=== PATIENT | female | born 1945 | race Caucasian/White ===

== ENCOUNTER 2017-04-03 10:40 | Outpatient (CLI) | payer MEDICARE ==
--- NOTE | 2017-04-24 10:51 | MMO ---
SCREENING MAMMOGRAPHY: Date: 04-03-17 Comparison: 03-29-16, 12-08-14, 12-04-13 History: Screening mammogram. The patient reports a remote history of right lumpectomy with benign pa thology. FINDINGS: This study is interpreted with the assistance of computer aided detection. Scattered fibroglandular densities are present. Benign appearing microcalcifications are noted bilate rally. There is a stable area of density in the upper outer aspect of the right breast, consistent with the provided history of prior right sided lumpectomy. No dominant mass or architectural distortion. No co ncerning microcalcifications. IMPRESSION: BIRADS 2 - benign findings. Annual screening mammography advised. POS: [facility]
== END 2017-04-03 10:41 | disposition home or self-care (01) ==
LOC: SCSMAMMO 10:40
PROVIDERS: ATTEND Family Medicine
DX: Z12.31 Encounter for screening mammogram for malignant neoplasm of breast (principal)
CPT/HCPCS: 77067; G0202

== ENCOUNTER 2017-07-20 09:12 | Outpatient (CLI) | payer MEDICARE ==
--- NOTE | 2017-07-20 12:10 | RAD ---
PA AND LATERAL CHEST X-RAY: 07/20/2017 HISTORY: Dyspnea. COMPARISON: 06/28/2011 FINDINGS: There is increased density at the medial right lung base, but this was also present on the prior exam . CT angiogram thorax on 10/10/2015 demonstrated an epicardial fat pad at the anteromedial right halima g base, which probably accounts for this finding. An epicardial fat pad is also seen at the left halima g base. The cardiac silhouette is mildly enlarged. The pulmonary vasculature is within normal limit s. The lungs are clear. Vascular calcification is seen in the thoracic aorta. There has been no ot her interval change when compared to the prior exam. IMPRESSION: No acute cardiopulmonary process. Chest is overall stable when compared to prior study on 06/28/2011 . POS: [facility]
== END 2017-07-20 09:13 | disposition home or self-care (01) ==
LOC: CP 09:12
PROVIDERS: ATTEND Internal Medicine Critical Care Medicine
DX: R06.00 Dyspnea, unspecified (principal)
CPT/HCPCS: 71046; 94010; 94727; 94729

== ENCOUNTER 2017-10-26 13:33 | Observation (INO) | payer MEDICARE ==
[2017-10-26 14:39] LABS: #Basophils 0.1 thou/uL (0.0-0.2); #Eosinphils 0.2 thou/uL (0.0-0.7); #Lymphocytes 2.1 thou/uL (1.20-3.40); #Monocytes 0.7 thou/uL (0.11-0.59); #Neutrophils 5.7 thou/uL (1.40-6.50); %Basophils 1.6 % (0.0-1.0); %Eosinophils 2.1 % (0.0-10.0); %Lymphocytes 23.3 % (21.0-51.0); %Monocytes 7.8 % (0.0-10.0); %Neutrophils 65.2 % (42.0-75.0); Mean Corpuscular HGB CONC 34.4 g/dL (32.0-36.0); Mean Corpuscular Hemoglobin 29.8 pg (27.0-31.0); Mean Corpuscular Volume 86.5 fL (78.0-98.0); Mean Platelet Volume 7.2 fL (7.4-10.4); PTT 29.6 SEC (22.9-36.1); Platelet Count 258 thou/uL (130-400); RBC Distribution Width 11.5 % (11.5-14.5); Red Blood Cell (RBC) Count 4.69 mill/uL (4.20-5.40); White Blood Cell (WBC) Count 8.8 thou/uL (4.8-10.8)
[2017-10-26 14:46] LABS: ALT (SGPT) 31 U/L (8-55); Albumin 3.9 g/dL (3.4-4.8); Alkaline Phosphatase 103 U/L (40-150); Anion Gap 14 mmol/L (10-20); BUN (Urea Nitrogen) 10 mg/dL (9.8-20.1); Bilirubin, Total 1.2 mg/dL (0.2-1.2); Calc. Creatinine Clearance 0 mL/min (70-130); Calcium 10.1 mg/dL (7.8-10.44); Carbon Dioxide 21 mmol/L (23-31); Chloride 108 mmol/L (98-107); Estimated GFR-MDRD 74; Globulin 2.8 g/dL (2.4-3.5); Glucose 121 mg/dL (80-115); Lipase 13 U/L (8-78); Protein, Total 6.7 g/dL (6.0-8.3); Sodium 139 mmol/L (136-145)
[2017-10-26 14:48] LABS: CKMB 1.6 ng/mL (0-6.6); Troponin I Less than 0.010 ng/mL (< 0.028)
[2017-10-26 15:17] LABS: AST (SGOT) 21 U/L (5-34); Magnesium 1.8 mg/dL (1.6-2.6)
--- NOTE | 2017-10-26 15:32 | RAD ---
PORTABLE CHEST 1 VIEW: DATE: 10/26/17. TIME: 2:39 p.m. HISTORY: Chest pain, angina. FINDINGS: Comparison is made with the exam of 07/20/17. The heart size is enlarged. The lungs are expanded without lobar consolidation, pneumothoraces, cm k pulmonary edema, or pleural effusions. IMPRESSION: No acute process. POS: [facility]
[2017-10-26] MEDS ORDERED: Nitroglycerin 2% Ointment 1 INCH/1 GM Packet ONE (15:47)
[2017-10-26] MEDS ORDERED: Enoxaparin Sodium 80 MG/0.8 ML SYRINGE ONE ×2 (15:47→15:48)
[2017-10-26 17:03] VITALS: BMI 34.9
[2017-10-26 18:01] LABS: Troponin I Less than 0.010 ng/mL (< 0.028)
[2017-10-26 20:32] LABS: Troponin I Less than 0.010 ng/mL (< 0.028)
[2017-10-26] MEDS ORDERED: Nitroglycerin 0.4 MG TAB (25 Tab Bottle) PO PRN (20:57)
[2017-10-26] MEDS ORDERED: Acetaminophen 325 MG TAB PO PRN (20:57)
--- NOTE | 2017-10-26 21:02 | HP ---
DATE OF ADMISSION: 10/26/2017 PRIMARY CARE PHYSICIAN: Dr. Donald. PRIMARY METAL STAMPER: Dr. Kee. CHIEF COMPLAINT: Chest discomfort. HISTORY OF PRESENT ILLNESS: The patient is a 72-year-old female with hypertension, currently on atenolol and prediabetes presented to the emergency room at [place] with chest discomfort. She was transferred to this facility for hospital admission. Over the last 24 hours, patient has on and off chest discomfort which is substernal, radiating to her left neck and left arm. She had several episodes, each lasting for 5-10 minutes. The pain was 6/10, dull in nature without any aggravating or relieving factor. No nausea, vomiting, diaphoresis, dizziness, syncope reported. She denies any recent immobilization, travel, fever, chills, cough or heartburn. In the emergency room, her EKG showed atrial fibrillation with nonspecific ST-T wave changes. Initial vital signs showed temperature 98.5, respirations 16, pulse 82, blood pressure 144/87 with O2 saturation 98% on room air. She received 1 dose of Lovenox 1 mg/kg with aspirin, 2 mg morphine, and nitropatch was placed. PAST MEDICAL HISTORY: 1. Hypertension 2. Hyperlipidemia. 3. Chronic myeloid leukemia on Tasigna. 4. Bilateral lower extremity neuropathy. 5. Chronic venous insufficiency, improved with support stocking. 6. Prediabetes. 7. Obesity with a BMI of 35. 8. Diverticulosis. 9. Degenerative joint disease. 10. Restless leg syndrome. 11. Obstructive sleep apnea on CPAP. PAST SURGICAL HISTORY: 1. Foot surgery. 2. Carpal tunnel surgery. 3. Cholecystectomy. 4. x2. 5. Appendectomy. 6. Partial colectomy for diverticulitis. 7. Resection of benign pituitary tumor. 8. Lumbar surgery. 9. Removal of benign breast tumor. 10. Cardiac catheterization in 2013 and 2016, report unavailable. 11. Colonoscopy. 12. Cataract surgery. ALLERGIES: Patient is allergic to CODEINE and LEVAQUIN. CURRENT HOME MEDICATIONS: Tasigna, ramipril 10 mg daily, aspirin 81 mg daily, atenolol, chlorthalidone 50/25 daily, Zetia 10 mg daily, potassium chloride 20 mEq daily. SOCIAL HISTORY: Patient currently lives at home with her . No alcohol, tobacco or drug use reported. She makes her own decision with the help of her . FAMILY HISTORY: Mother with stroke. She also had breast cancer. REVIEW OF SYSTEMS: The following complete review of systems was negative, unless otherwise mentioned in the HPI or below: Constitutional: Weight loss or gain, ability to conduct usual activities. Skin: Rash, itching. Eyes: Double vision, pain. ENT/Mouth: Nose bleeding, neck stiffness, pain, tenderness. Cardiovascular: Palpitations, dyspnea on exertion, orthopnea. Respiratory: Shortness of breath, wheezing, cough, hemoptysis, fever or night sweats. Gastrointestinal: Poor appetite, abdominal pain, heartburn, nausea, vomiting, constipation, or diarrhea. Genitourinary: Urgency, frequency, dysuria, nocturia. Musculoskeletal: Pain, swelling. Neurologic/Psychiatric: Anxiety, depression. Allergy/Immunologic: Skin rash, bleeding tendency. PHYSICAL EXAMINATION: VITAL SIGNS: As discussed above. GENERAL: A 72-year-old female in no apparent distress, no chest pain at this time. HEENT: Head atraumatic, normocephalic. Sclerae are anicteric. Moist mucous membrane, no oral lesion. NECK: Supple, no JVD appreciated. No carotid bruit. LUNGS: Clear to auscultation bilaterally, no wheezing, rales or rhonchi. HEART: S1, S2 present. Irregularly irregular. No significant murmur, rubs or gallops appreciated. ABDOMEN: Soft, nontender, bowel sounds present. EXTREMITIES: No edema or calf tenderness. NEUROLOGIC: Grossly nonfocal, moves all four extremities. PSYCHIATRY: Alert, awake, oriented x3. SKIN: Warm and dry. LYMPH NODES: No palpable lymph nodes in the neck. PERIPHERAL VASCULAR: Radial pulses palpable bilaterally. MUSCULOSKELETAL: No joint swelling or tenderness. LABORATORY AND X-RAY FINDINGS: Troponin negative. BUN 10, creatinine 0.7, magnesium 1.8, potassium 4.0. WBC 8.8 with hemoglobin 14. PT, INR, PTT normal range. Chest x-ray by my review was negative for infiltrate or edema. EKG by my review as discussed above. It also showed incomplete right bundle- branch block. IMPRESSION: 1. Chest discomfort, rule out acute coronary syndrome. 2. New diagnosis of atrial fibrillation, rate controlled on atenolol. Patient received 1 dose of Lovenox in the emergency room. 3. Obesity with a BMI of 35. 4. Hyperlipidemia. 5. History of abnormal stress test in 2016. 6. Chronic myelocytic leukemia, currently on Tasigna. 7. Hypertension. PLAN: Patient will be monitored on the telemetry unit. Serial troponins will be obtained. We will consult Dr. Kee in a.m. We will continue all of her home medications including atenolol with low dose aspirin. We will keep her n.p.o. past midnight. Further management per Cardiology. Plan of care was discussed with the patient in detail and she stated understanding. ANA
[2017-10-26] MEDS ORDERED: Nitroglycerin 2% Ointment 1 INCH/1 GM Packet TOP SCH (23:59)
[2017-10-27] MEDS ORDERED: Diazepam 2 MG TAB PO SCH (04:15)
[2017-10-27] MEDS ORDERED: Enoxaparin Sodium 80 MG/0.8 ML SYRINGE SC SCH (11:30)
--- NOTE | 2017-10-27 13:32 | EKG ---
Test Reason : STAT Blood Pressure : / mmHG Vent. Rate : 086 BPM Atrial Rate : 093 BPM P-R Int : 000 ms QRS Dur : 108 ms QT Int : 388 ms P-R-T Axes : 000 -04 -32 degrees QTc Int : 464 ms Atrial fibrillation Incomplete right bundle branch block Nonspecific T wave abnormality Abnormal ECG Confirmed by SOLA MEZA ([id number]) on 10/27/2017 1:32:28 PM Referred By: KENIA Confirmed By:SOLA MEZA
[2017-10-27 16:25] VITALS: BP 126/65; TEMP 98
[2017-10-27] MEDS ORDERED: Apixaban 5 MG TAB PO SCH (21:00)
[2017-10-27] MEDS ORDERED: Metoprolol Tartrate 25 MG TAB PO SCH (21:00)
--- NOTE | 2017-10-28 00:11 | CON ---
DATE OF ADMISSION: 10/26/2017 DATE OF CONSULTATION: 10/27/2017 INDICATION FOR CONSULTATION: This is a 72-year-old female with new onset atrial fibrillation. HISTORY OF PRESENT ILLNESS: This is a very pleasant 72-year-old female who has been followed by Dr. Kee in the past. She was seen in the office recently as January of last year and had been doin g quite well. She then noticed in the last few days, she has been having some pain in her left shoul lyubov which radiates down the left arm and left hand last about 10-15 minutes this would resolve, it ca n occur at any time, not associated with any type of activity. She did undergo a cardiac catheteriza tion couple of years ago and had normal coronary arteries. She also has had an echocardiogram in the past that did not show any significant abnormalities. She has no diastolic dysfunction. She has a normal ejection fraction. Unfortunately, when she was seen in the emergency room due to the arm pain , she was found to be in atrial fibrillation, the rate is under good control. She has been on beta-b lockers, but there has been no previous history of atrial fibrillation in the past. At this time, kell harman is relatively stable. She has no complaints of discomfort, but remains in atrial fibrillation. PAST MEDICAL HISTORY: Significant for CML, hyperlipidemia, hypertension. She has had history of low er extremity neuropathy. She has some venous insufficiency bilaterally, but it is not very significa nt. She has prediabetes, diverticulosis. She has obesity, degenerative joint disease, restless leg syndrome, and obstructive sleep apnea for which she uses a CPAP mask. She has had carpal tunnel synd rj repair, foot surgery, cholecystectomy. She has had a , appendectomy, benign pituitary resection. She has had a partial colectomy for diverticulitis, lumbar surgery. She has had removal of a benign breast tumor. She has had a colonoscopy, cataract surgery and again cardiac catheterizat ion which were unremarkable. She has normal coronary arteries. ALLERGIES: She is allergic to LEVAQUIN and CODEINE. MEDICATIONS: Prior to admission included Tasigna, ramipril, aspirin, atenolol, chlorthalidone, Zetia , and potassium. SOCIAL HISTORY: She is . She stays at home with her . She has no alcohol or tobacco abuse. FAMILY HISTORY: Noncontributory for early heart disease. Her mother had a CVA. REVIEW OF SYSTEMS: Twelve-point review of systems unremarkable except what was noted in the history of present illness. PHYSICAL EXAMINATION: GENERAL: Reveals a middle-aged female who is in no acute distress. She is alert and oriented. VITAL SIGNS: Her blood pressure is stable at 126/65, heart rates in the 80s and shows atrial fibrill ation. She has had no tachycardia associated with atrial fibrillation, respiratory rates in the 16-2 0 range. She is afebrile. HEENT: Shows head to be normocephalic and atraumatic. Carotid pulses are present. There were no br uits. There is no JVD. The thyroid did not appear to be enlarged. CHEST: Clear to auscultation without rales, rhonchi, or wheezing. CARDIOVASCULAR: Reveals an irregularly irregular rhythm. There were no gross murmurs noted. I did not hear an S3 nor an S4, but however, with atrial fibrillation could also not hear a S1, S2. ABDOMEN: Soft and nontender. She has positive bowel sounds. She does have obesity, but no palpable masses. EXTREMITIES: Show no clubbing, cyanosis or edema. Pedal pulses are present. NEUROLOGIC: She appears to be intact with normal strength and tone. SKIN: Warm and dry. LABORATORY DATA: Shows hemoglobin of 14. WBC is 8.8. Her BUN was 10 with a creatinine of 0.77, blo od sugar was 121. Cardiac enzymes are negative. No evidence of myocardial infarction. EKG shows a right bundle branch block with atrial fibrillation. She has had a right bundle branch block in the p ast with atrial fibrillation is new. IMPRESSION: 1. New onset atrial fibrillation. We will check her thyroid level otherwise, there was no specific etiology of the atrial fibrillation, is unlikely due to coronary artery disease and she had normal ca rdiac catheterization in 2016. She has a normal ejection fraction. This may be just due to the agin g process. We will also check a thyroid function to ensure that she does not have hyperthyroidism. 2. History of hypertension. This is under good control at this time. We will continue her present medications. Also for the atrial fibrillation, we will continue her atenolol. She is under good rat e control. We will see her back in the office. We will also start her on Eliquis. At this time, we will see her in the office and will give consideration is whether or not she is a candidate to under go cardioversion for atrial fibrillation 4-6 weeks after being anticoagulated. She may also be a goo d candidate to undergo ablation of the atrial fibrillation by the community artist. 3. History of chronic myelogenous leukemia. She will continue to follow with Dr. Masters, her oncol ogist or physical education specialist. 4. Hyperlipidemia. We will continue her medications. 5. Obstructive sleep apnea. We will continue her CPAP mask at this time. Otherwise, please refer t o the notes dictated by the primary care service. At this time, from a cardiac standpoint despite at rial fibrillation, she appears to be stable and most likely can be discharged home today. Her new me dication will be Eliquis and she will continue on the atenolol.
--- NOTE | 2017-10-28 14:18 | DIS ---
DATE OF DISCHARGE: 10/27/2017 DISCHARGE DISPOSITION: Home. FOLLOWUP: 1. Follow up with primary care physician, Dr. Donald in 1 week. 2. Follow up with Dr. Kee next week. MEDICATIONS; The patient was advised to discontinue aspirin. Eliquis 5 mg twice a day was started. All other home medications were left unchanged. The patient was seen and examined on the day of discharge. Denies any new complaints. No chest pain , shortness of breath, palpitations. INPATIENT CONSULTANTS: Cardiology, Dr. Newsome, who was covering for Dr. Kee. BRIEF HOSPITAL COURSE: The patient is a 72-year-old female with hypertension, who presented to the [facility] with chest discomfort. In the emergency room, she was found to have atrial fibrillation. He r rate was, however, controlled. Please refer to the history and physical for further details. The patient was admitted to the hospital with a diagnosis of chest discomfort, rule out acute coronar y syndrome. Serial troponins were negative. Cardiology evaluated the patient. The patient had a ca ia catheterization in 2005, which has been negative per Cardiology, verbal report. She has been s tarted on Eliquis 5 mg twice a day for atrial fibrillation. She was placed on Lovenox during this [facility] stay. She has been cleared by Cardiology for discharge. Plan of care was discussed with the patient in detail. She stated understanding. FINAL DIAGNOSES: 1. Chest discomfort, acute coronary syndrome ruled out. 2. New onset atrial fibrillation, rate controlled. The patient will continue current dose of atenol ol. 3. Obesity with a BMI of 35. 4. Hyperlipidemia. 5. Chronic myeloid leukemia, on Tasigna. 6. Hypertension. 7. History of abnormal stress test in 2015. Plan of care was discussed with the patient. She stated understanding.
== END 2017-10-27 18:24 | disposition home or self-care (01) ==
LOC: SCSER 13:33 → 2SW 17:01 → INTOOBSV 17:01
PROVIDERS: ADMIT Internal Medicine; ATTEND Internal Medicine
DX: R07.89 Other chest pain (principal); I48.91 Unspecified atrial fibrillation; E66.9 Obesity, unspecified; E78.5 Hyperlipidemia, unspecified; C92.10 Chronic myeloid leukemia, BCR/ABL-positive, not having achieved remission; I10 Essential (primary) hypertension; Z88.5 Allergy status to narcotic agent; Z68.35 Body mass index [BMI] 35.0-35.9, adult; Z79.82 Long term (current) use of aspirin; Z79.899 Other long term (current) drug therapy; G47.33 Obstructive sleep apnea (adult) (pediatric)
CPT/HCPCS: 71045; 80053; 82553; 83690; 83735; 84484 ×2; 85025; 85610; 85730; 93005 ×2; 94760 ×2; 96372 ×2; 96374; 99285; G0378; 36415; 93010; J1650; J2270

== ENCOUNTER 2017-11-12 08:42 | Emergency (ER) | payer MEDICARE ==
[2017-11-12] MEDS ORDERED: Iopamidol 370 76% 100 ML VIAL ONE (09:00)
[2017-11-12] MEDS ORDERED: Lorazepam 2 MG/ML VIAL ONE (09:08)
[2017-11-12] MEDS ORDERED: Nitroglycerin 2% Ointment 1 INCH/1 GM Packet ONE (09:08)
[2017-11-12] MEDS ORDERED: Ondansetron HCl/PF 4 MG/2 ML Vial ONE (09:08)
[2017-11-12] MEDS ORDERED: Nitroglycerin 0.4 MG TAB (25 Tab Bottle) ONE (09:08)
[2017-11-12 09:30] LABS: #Basophils 0.1 thou/uL (0.0-0.2); #Eosinphils 0.1 thou/uL (0.0-0.7); #Lymphocytes 1.8 thou/uL (1.20-3.40); #Monocytes 0.6 thou/uL (0.11-0.59); #Neutrophils 4.6 thou/uL (1.40-6.50); %Basophils 1.5 % (0.0-1.0); %Eosinophils 1.5 % (0.0-10.0); %Lymphocytes 24.6 % (21.0-51.0); %Monocytes 8.3 % (0.0-10.0); %Neutrophils 64.1 % (42.0-75.0); Hemoglobin 14.8 g/dL (12.0-16.0); Mean Corpuscular HGB CONC 35.9 g/dL (32.0-36.0); Mean Corpuscular Hemoglobin 29.9 pg (27.0-31.0); Mean Corpuscular Volume 83.2 fL (78.0-98.0); Mean Platelet Volume 7.7 fL (7.4-10.4); Platelet Count 240 thou/uL (130-400); RBC Distribution Width 11.1 % (11.5-14.5); Red Blood Cell (RBC) Count 4.96 mill/uL (4.20-5.40); White Blood Cell (WBC) Count 7.2 thou/uL (4.8-10.8)
[2017-11-12 09:36] LABS: ALT (SGPT) 46 U/L (8-55); AST (SGOT) 23 U/L (5-34); Albumin 4.3 g/dL (3.4-4.8); Alkaline Phosphatase 101 U/L (40-150); Anion Gap 18 mmol/L (10-20); BUN (Urea Nitrogen) 12 mg/dL (9.8-20.1); Bilirubin, Total 1.2 mg/dL (0.2-1.2); CK (CPK) 82 U/L (29-168); Calc. Creatinine Clearance 0 mL/min (70-130); Calcium 10.1 mg/dL (7.8-10.44); Carbon Dioxide 23 mmol/L (23-31); Chloride 102 mmol/L (98-107); Estimated GFR-MDRD 72; Globulin 2.2 g/dL (2.4-3.5); Glucose 109 mg/dL (80-115); Lipase 16 U/L (8-78); Potassium 3.5 mmol/L (3.5-5.1); Protein, Total 6.5 g/dL (6.0-8.3); Sodium 139 mmol/L (136-145)
[2017-11-12 09:37] LABS: CKMB 1.4 ng/mL (0-6.6); Troponin I Less than 0.010 ng/mL (< 0.028)
--- NOTE | 2017-11-12 12:00 | RAD ---
UPRIGHT PORTABLE CHEST 1 VIEW: HISTORY: A 72-year-old female with a history of left-sided chest pain radiating to neck and left arm. COMPARISON: 10/26/17. FINDINGS: Monitor leads overlie the chest. Heart size is within normal limits. The lungs are clear. No pneum onia, edema, or pleural effusion or other acute process. IMPRESSION: No acute intrathoracic disease. Stable from prior study. POS: [facility]
--- NOTE | 2017-11-12 13:36 | CT ---
CT ANGIOGRAM THORAX WITH IV CONTRAST AND 3D RECONSTRUCTIONS: DATE: 11/12/17. HISTORY: Chest pain with pain radiating to the patient's neck and left arm. COMPARISON: 10/10/15. FINDINGS: No filling defects are seen in the pulmonary arteries to suggest a pulmonary embolus. Vascular calcifications are seen in the thoracic aorta. The thoracic aorta is normal in caliber with out evidence of an aortic dissection. Nonenlarged nonspecific mediastinal lymph nodes are present. There are mild linear and parenchymal densities in the region of the right middle lobe and lingula al so seen on prior study on 10/10/15 and may be related to areas of scarring. The lungs are otherwise c lear. No pulmonary nodule, mass, or pleural effusion is seen. Heart is at the upper limits of ivone l in size. There is a stable small pericardial effusion. A small hiatal hernia is again identified. Degenerative changes are seen in the spine. There is suggested cortical thickening and coarsened tra becular pattern involving the T12 vertebral body which is stable when compared to the prior study as well as stable when compared to prior study on10/22/14. This may be related to prominent degenerative changes at these levels, but given coarsened trabecular pattern, Paget's disease is a possibility. IMPRESSION: 1. No Ct evidence of a pulmonary embolus. 2. Stable small pericardial effusion. 3. Small hiatal hernia. 4. No CT evidence of a pulmonary embolus. POS: [facility]
== END 2017-11-12 11:44 | disposition home or self-care (01) ==
LOC: SCSER 08:42
DX: I48.91 Unspecified atrial fibrillation (principal); E78.5 Hyperlipidemia, unspecified; I10 Essential (primary) hypertension; Z79.899 Other long term (current) drug therapy
CPT/HCPCS: 71045; 71275; 80053; 82553; 83690; 84484; 85025; 93005; 96374; 96375; J2060; J2405

== ENCOUNTER 2018-04-07 08:11 | Emergency (ER) | payer MEDICARE ==
[2018-04-07] MEDS ORDERED: HYDROcodone/Acetaminophen 5/325 mg Tablet ONE (09:21)
--- NOTE | 2018-04-07 09:48 | RAD ---
CHEST PA AND LATERAL: HISTORY: Cough. COMPARISON: 11/12/2017 FINDINGS: The heart size is enlarged. The lungs are well expanded without focal areas of consolidation, pneumo thorax, maria a pulmonary edema, or pleural effusions. There are degenerative changes in the spine. IMPRESSION: No acute process. POS: [facility]
[2018-04-07 10:03] LABS: Bilirubin Negative (Negative); Blood, Urine Negative (Negative); Clarity Slightly Cloudy (Clear); Glucose, Urine (Dipstick) Negative (Negative); Leukocyte Trace (Negative); Nitrite Negative (Negative); Protein, Urine (Dipstick) Negative (Neg-Trace); pH, Urine 7.5 (5.0-9.0)
[2018-04-07 10:05] LABS: Bacteria/HPF 2+ HPF (None Seen); RBC/HPF 0-3 HPF (0-3); Squamous Epithelial 0-3 HPF (0-3)
== END 2018-04-07 10:47 | disposition home or self-care (01) ==
LOC: SCSER 08:11
DX: J34.89 Other specified disorders of nose and nasal sinuses (principal); R53.81 Other malaise; M79.10 Myalgia, unspecified site; R05 Cough; G89.29 Other chronic pain; M54.5 Low back pain; E78.5 Hyperlipidemia, unspecified; I10 Essential (primary) hypertension; G47.30 Sleep apnea, unspecified; I48.91 Unspecified atrial fibrillation; Z79.899 Other long term (current) drug therapy
CPT/HCPCS: 71046; 81003; 81015; 87077; 87086; 87186; 87804; 93005

== ENCOUNTER 2018-04-24 10:42 | Outpatient (CLI) | payer MEDICARE ==
--- NOTE | 2018-04-24 13:30 | MMO ---
SCREENING MAMMOGRAPHY: DAET: 04/24/2018. COMPARISON: 04/03/2017, 03/29/2016, 12/04/2013. HISTORY: Screening. FINDINGS: The patient's mammogram is interpreted with the assistance of computer-aided detection. There are sc attered fibroglandular densities present. No dominant mass or architectural distortion is noted. There are benign calcifications noted bilater ally. A stable asymmetric density is noted in the upper outer right breast, unchanged when compared to studies dating to 2015 and stable since 2013. The patient reports a history of prior lumpectomy. IMPRESSION: BI-RADS 2 - benign findings. Annual screening mammography recommended. BIRADS 2: Benign Finding(s) Routine annual screening mammography (for women over age 40) - benign findings. POS: [facility]
== END 2018-04-24 10:43 | disposition home or self-care (01) ==
LOC: SCSMAMMO 10:42
PROVIDERS: ATTEND Family Medicine
DX: Z12.31 Encounter for screening mammogram for malignant neoplasm of breast (principal)
CPT/HCPCS: 77067

== ENCOUNTER 2018-05-22 08:29 | Emergency (ER) | payer MEDICARE ==
[2018-05-22] MEDS ORDERED: Acetaminophen 325 MG TAB ONE (09:31)
== END 2018-05-22 09:44 | disposition home or self-care (01) ==
LOC: SCSER 08:29
DX: M25.511 Pain in right shoulder (principal); I48.91 Unspecified atrial fibrillation; I10 Essential (primary) hypertension; E78.5 Hyperlipidemia, unspecified; G47.30 Sleep apnea, unspecified; Z79.899 Other long term (current) drug therapy
CPT/HCPCS: 99283

== ENCOUNTER 2018-05-30 16:48 | Outpatient (CLI) | payer MEDICARE ==
--- NOTE | 2018-05-30 18:38 | RAD ---
PA AND LATERAL CHEST: 05/30/18 HISTORY: Cough. Fever. COMPARISON: 04/07/18 exam. Heart size is enlarged. There are atherosclerotic changes of the aorta. The lungs are clear of any in filtrates. There are arthritic changes in the spine. IMPRESSION: Mild cardiomegaly. POS: [facility]
== END 2018-05-30 16:49 | disposition home or self-care (01) ==
LOC: SCSRAD 16:48
PROVIDERS: ATTEND Nurse Practitioner Family
DX: J40 Bronchitis, not specified as acute or chronic (principal); I51.7 Cardiomegaly
CPT/HCPCS: 71046

== ENCOUNTER 2019-02-19 11:31 | Outpatient (CLI) | payer MEDICARE ==
--- NOTE | 2019-02-19 12:11 | ULT ---
US Venous Doppler Rt Unilat HISTORY: Leg edema. Pain and redness. COMPARISON: None. FINDINGS: Real-time color Doppler evaluation the right lower extremity was performed from groin to ca lf. This includes evaluation the common femoral and superficial femoral, profunda femoral saphenous popliteal posterior tibial veins. This shows a patent deep venous system. There is normal compressibility and augmentation. IMPRESSION: No evidence of DVT of the right lower extremity.
== END 2019-02-19 11:32 | disposition home or self-care (01) ==
LOC: SCSULT 11:31
PROVIDERS: ATTEND Nurse Practitioner Family
DX: I87.2 Venous insufficiency (chronic) (peripheral) (principal)

== ENCOUNTER 2019-05-17 16:31 | Observation (INO) | payer MEDICARE ==
--- NOTE | 2019-05-17 17:04 | RAD ---
EXAM: Chest Two Views 05/17/2019 5:01 PM HISTORY: Chest pain COMPARISON: May 30, 2018 FINDINGS: Heart: There is stable cardiomegaly. Pulmonary vessels: Normal. Costophrenic angles: Clear. Lungs: No acute airspace consolidation. Pneumothorax: None. Osseous structures:Intact. Additional findings: None. IMPRESSION: No significant acute intrathoracic disease.
[2019-05-17 17:22] LABS: #Basophils 0.1 thou/uL (0.0-0.2); #Eosinphils 0.3 thou/uL (0.0-0.7); #Lymphocytes 2.9 thou/uL (1.20-3.40); #Neutrophils 5.9 thou/uL (1.40-6.50); %Basophils 1.3 % (0.0-1.0); %Eosinophils 2.5 % (0.0-10.0); %Lymphocytes 28.2 % (21.0-51.0); %Monocytes 9.8 % (0.0-10.0); %Neutrophils 58.2 % (42.0-75.0); Hemoglobin 14.8 g/dL (12.0-16.0); Mean Corpuscular HGB CONC 32.7 g/dL (32.0-36.0); Mean Corpuscular Hemoglobin 29.4 pg (27.0-31.0); Mean Corpuscular Volume 89.8 fL (78.0-98.0); Mean Platelet Volume 8.1 fL (7.4-10.4); Platelet Count 254 thou/uL (130-400); RBC Distribution Width 12.9 % (11.5-14.5); Red Blood Cell (RBC) Count 5.03 mill/uL (4.20-5.40); White Blood Cell (WBC) Count 10.1 thou/uL (4.8-10.8)
[2019-05-17 17:40] LABS: ALT (SGPT) 41 U/L (8-55); AST (SGOT) 30 U/L (5-34); Albumin 4.3 g/dL (3.4-4.8); Alkaline Phosphatase 111 U/L (40-110); Anion Gap 15 mmol/L (10-20); BUN (Urea Nitrogen) 14 mg/dL (9.8-20.1); Bilirubin, Total 1.3 mg/dL (0.2-1.2); CK (CPK) 102 U/L (29-168); Calc. Creatinine Clearance 0 mL/min (70-130); Calcium 9.6 mg/dL (7.8-10.44); Carbon Dioxide 25 mmol/L (23-31); Chloride 105 mmol/L (98-107); Estimated GFR-MDRD 57; Globulin 2.6 g/dL (2.4-3.5); Glucose 93 mg/dL (83-110); Potassium 3.8 mmol/L (3.5-5.1); Protein, Total 6.9 g/dL (6.0-8.3); Sodium 141 mmol/L (136-145)
[2019-05-17] MEDS ORDERED: Aspirin 325 MG TAB ONE (18:04)
[2019-05-17] MEDS ORDERED: Nitroglycerin 2% Ointment 1 INCH/1 GM Packet ONE (18:04)
[2019-05-17] MEDS ORDERED: Haloperidol Lactate 5 MG/ML VIAL ONE (18:36)
[2019-05-17] MEDS ORDERED: Lorazepam 2 MG/ML VIAL ONE (18:36)
[2019-05-17 20:10] VITALS: BMI 37.3
[2019-05-17 20:55] LABS: Troponin I Less than 0.010 ng/mL (< 0.028)
[2019-05-17] MEDS: Nitroglycerin 2% Ointment 1 INCH/1 GM Packet TOP SCH (23:18)
[2019-05-17 23:32] LABS: Troponin I Less than 0.010 ng/mL (< 0.028)
[2019-05-18] MEDS: Nitroglycerin 2% Ointment 1 INCH/1 GM Packet TOP SCH (06:07)
[2019-05-18] MEDS ORDERED: Ketorolac Tromethamine 30 MG/ML VIAL IVP SCH (08:45)
[2019-05-18] MEDS ORDERED: Acetaminophen 500 MG TAB PO PRN (12:09)
[2019-05-18] MEDS ORDERED: Labetalol HCl 100 MG/20 ML VIAL SLOW IVP PRN (12:09)
[2019-05-18] MEDS ORDERED: Ondansetron PF 4 MG/2 ML Vial IVP PRN (12:09)
[2019-05-18] MEDS ORDERED: Ondansetron ODT 4 MG TAB PO PRN (12:09)
[2019-05-18] MEDS ORDERED: Benzonatate 100 MG CAP PO PRN (12:09)
[2019-05-18] MEDS ORDERED: Guaifenesin DM 100-10/5 ML UDCUP PO PRN (12:09)
[2019-05-18] MEDS ORDERED: Ketorolac Tromethamine 30 MG/ML VIAL IVP PRN (12:27)
[2019-05-18] MEDS ORDERED: Betamethasone 0.1% Cream 15 GM TUBE TOP PRN (13:00)
--- NOTE | 2019-05-18 13:19 | HP ---
PRIMARY CARE PROVIDER: Jose Enrique Donald MD CHIEF COMPLAINT: Shortness of breath and left neck pain. HISTORY OF PRESENT ILLNESS: This is a 74-year-old female with significant history of chronic atrial fibrillation with variable rate on chronic anticoagulation with Eliquis, complaining of progressive and intrusive shortness of breath with minimal activity or exertion. The patient with chronic atrial fibrillation, on Eliquis over 1 year with variable rate control. The patient states she has undergone 5 attempts for cardioversion, which were unsuccessful. The patient most recently had an outpatient visit with her railroad auditor, Dr. Kee, approximately 5 days prior to this evaluation. The patient denied any specific change to her cardiac medications and continues on rate control measures in addition to the anticoagulation. The patient has noted progressive shortness of breath, limiting her ability to take part in her regular activities at home and limiting her ability to even perform shopping duties. The patient also states she was placed on Ceftin for bronchitis by her maintenance specialist within the last 48 hours prior to this evaluation. The patient does admit to feeling palpitations when her heart races with minimal activity with some pain in her left neck with increased work of breathing. The patient denies any increased lower extremity swelling or orthopnea. The patient denied fever, chills, exposure history, or recent travel. The patient also admits to history of peripheral neuropathy, treated with gabapentin by her neurologist, Dr. Cleveland. In the emergency room, the patient underwent general evaluation, receiving topical nitroglycerin in addition to aspirin 325 mg. EKG showed atrial fibrillation with variable rate and chest imaging was unremarkable. The patient was placed in observation status for further evaluation. PAST MEDICAL HISTORY: 1. Chronic atrial fibrillation with variable rate control on chronic anticoagulation with Eliquis. 2. Peripheral neuropathy. 3. Dyspnea, progressive. 4. Hypertension. 5. Obstructive sleep apnea, on nocturnal CPAP. 6. Hyperlipidemia. 7. Chronic myelocytic leukemia, in remission. 8. Morbid obesity. 9. History of diverticulosis. 10. Restless legs syndrome. PAST SURGICAL HISTORY: 1. Status post foot surgery. 2. Status post carpal tunnel release. 3. Status post cholecystectomy. 4. Status post section x2. 5. Status post appendectomy. 6. Status post partial colectomy for diverticulitis. 7. Status post resection of pituitary tumor. 8. Status post lumbar spine surgery. 9. Status post benign breast tumor resection. 10. Status post cardiac catheterization in 2013 and 2016. 11. Status post colonoscopy. 12. Status post cataract removal. 13. Status post cardioversion x5, unsuccessful for atrial fibrillation. CURRENT MEDICATIONS: 1. Atenolol/chlorthalidone 50/25 mg 1 tablet p.o. daily. 2. Ceftin 250 mg p.o. b.i.d. 3. Zetia 10 mg p.o. at bedtime. 4. Gabapentin 300 mg p.o. q.a.m. and at noon and 600 mg at bedtime. 5. Multivitamin 1 tablet p.o. daily. 6. Tasigna 300 mg p.o. b.i.d. 7. [place]-3 fatty acids 1 capsule p.o. b.i.d. 8. K-Dur 20 mEq p.o. daily. 9. Altace 10 mg p.o. at bedtime. 10. Coenzyme Q10 of 200 mg p.o. q.a.m. 11. Eliquis 5 mg p.o. b.i.d. ALLERGIES: TO CODEINE AND LEVAQUIN. FAMILY HISTORY: Mother with history of CVA and breast cancer. SOCIAL HISTORY: , residing in [place], [place]. No current alcohol, tobacco, or illicit drug use. Limited activity level due to dyspnea. No assistive device needed for ambulation. REVIEW OF SYSTEMS: CONSTITUTIONAL: Negative for weight loss or gain, ability to conduct usual activities. SKIN: Negative for rash, itching. EYES: Negative for double vision, pain. ENT/MOUTH: Negative for nose bleeding, neck stiffness, pain, tenderness. CARDIOVASCULAR: Negative for palpitations, dyspnea on exertion, orthopnea. RESPIRATORY: Negative for shortness of breath, wheezing, cough, hemoptysis, fever or night sweats. GASTROINTESTINAL: Negative for poor appetite, abdominal pain, heartburn, nausea, vomiting, constipation, or diarrhea. GENITOURINARY: Negative for urgency, frequency, dysuria, nocturia. MUSCULOSKELETAL: Negative for pain, swelling. NEUROLOGIC/PSYCHIATRIC: Negative for anxiety, depression. ALLERGY/IMMUNOLOGIC: Negative for skin rash, bleeding tendency. Otherwise, negative except as stated per HPI. PHYSICAL EXAMINATION: VITAL SIGNS: On admission, blood pressure 167/83, pulse 80, respiratory rate 20, temperature 98.8 degrees Fahrenheit, and O2 saturation 99% on room air. GENERAL APPEARANCE: This is a 74-year-old female, tearful, anxious, responsive to questions, in [id number] distress. HEENT: Pupils are equal, round, and reactive to light and accommodation. Extraocular muscles are intact. No scleral icterus. No conjunctival injection. Nares patent. OP is clear. Teeth in good repair. NECK: Supple. No cervical adenopathy. No thyromegaly. No carotid bruits. No JVD appreciated. Cervical spine with full active and passive range of motion. No meningeal signs noted. CHEST: Lungs are clear to auscultation bilaterally. CARDIOVASCULAR: S1 and S2 with irregular rate and rhythm. Distant heart sounds. ABDOMEN: Rounded, soft, nontender, and nondistended. Bowel sounds are positive in all 4 quadrants. There is no hepatosplenomegaly. No abdominal bruits. No rebound or guarding appreciated. EXTREMITIES: Warm and dry with fair turgor. No clubbing, cyanosis, or asymmetric edema appreciated. Pulses palpable distally at the dorsalis pedis, posterior tibial, and popliteal arteries bilaterally. Capillary refill less than 2 seconds. NEUROLOGIC: Cranial nerves II through XII are grossly intact. No focal or lateralizing signs appreciated. PERTINENT LABORATORY AND X-RAY FINDINGS: Sodium 141, potassium 3.8, chloride 105, CO2 of 25, BUN 14, creatinine 0.96, estimated GFR 57, glucose 93, calcium 9.6, total bilirubin 1.3, AST 30, ALT 41, and alkaline phosphatase 111. Troponin I negative x3. BNP 86. CBC within normal limits. Portable chest x-ray dated 05/17/2019, showed no acute cardiopulmonary process. EKG dated 05/17/2019, by my interpretation shows atrial fibrillation with heart rates in the 80s. Attenuated R-waves noted in the precordial leads. Right bundle-branch block pattern. T-wave flattening in leads III and aVF. ASSESSMENT AND PLAN: 1. Chronic atrial fibrillation with variable rate control. The patient will be observed on the telemetry unit. We will consult Cardiology and Electrophysiology Service for consideration of cardiac ablation therapy. Significant dyspnea associated with atrial fibrillation, limiting activities of daily living. Continue atenolol 50 mg daily. May consider additional rate control agents. Continue Eliquis 5 mg b.i.d. 2. Dyspnea. Suspect secondarily to #1. See above for management options. 3. Hypertension. Resume home antihypertensive regimen and monitor clinical response. 4. Chronic myeloid leukemia, in remission. Continue Tasigna. 5. Peripheral neuropathy. Resume gabapentin 300 mg q.a.m. and at noon and 600 mg at bedtime. 6. Prophylaxis. SCDs while in bed. Pepcid 20 mg p.o. b.i.d. 7. Code status is full. Surrogate medical decision maker is the patient's spouse. Job ID: [id number]
[2019-05-18] MEDS ORDERED: Gabapentin 300 MG CAP PO SCH (15:00)
[2019-05-18] MEDS: NILOTINIB 150 MG PO SCH (18:30)
[2019-05-18] MEDS: Gabapentin 300 MG CAP PO SCH (20:35)
[2019-05-18] MEDS: Cefuroxime Axetil 250 MG TAB PO SCH (20:35)
[2019-05-18] MEDS: Famotidine 20 MG TAB PO SCH (20:36)
[2019-05-18] MEDS: Fish Oil 1,000 MG CAP PO SCH (20:36)
[2019-05-18] MEDS: Potassium Chloride 20 MEQ TAB PO SCH (20:36)
[2019-05-18] MEDS: Ezetimibe 10 MG TAB PO SCH (20:37)
[2019-05-18] MEDS: Apixaban 5 MG TAB PO SCH (20:37)
[2019-05-19 05:40] LABS: Hemoglobin 14.4 g/dL (12.0-16.0); Lymphocytes 32 % (21-51); MDiff Complete? YES; Mean Corpuscular Hemoglobin 29.4 pg (27.0-31.0); Mean Corpuscular Volume 88.9 fL (78.0-98.0); Mean Platelet Volume 8.1 fL (7.4-10.4); Monocytes 10 % (0-10); Neutrophil 58 % (42-75); Platelet Count 234 thou/uL (130-400); White Blood Cell (WBC) Count 8.5 thou/uL (4.8-10.8)
[2019-05-19 06:48] LABS: Anion Gap 16 mmol/L (10-20); BUN (Urea Nitrogen) 20 mg/dL (9.8-20.1); Calc. Creatinine Clearance 56 mL/min (70-130); Carbon Dioxide 21 mmol/L (23-31); Chloride 108 mmol/L (98-107); Estimated GFR-MDRD 34; Glucose 82 mg/dL (83-110); Potassium 4.2 mmol/L (3.5-5.1); Sodium 141 mmol/L (136-145)
[2019-05-19] MEDS: NILOTINIB 150 MG PO SCH ×2 (07:00→18:08)
[2019-05-19] MEDS: Cefuroxime Axetil 250 MG TAB PO SCH ×2 (08:30→19:58)
[2019-05-19] MEDS: Fish Oil 1,000 MG CAP PO SCH ×2 (08:30→19:59)
[2019-05-19] MEDS: Ubidecarenone 50 MG CAP PO SCH (08:30)
[2019-05-19] MEDS: Famotidine 20 MG TAB PO SCH ×2 (08:30→19:58)
[2019-05-19] MEDS: Multivit, Therapeutic 1 TAB PO SCH (08:30)
[2019-05-19] MEDS: Gabapentin 300 MG CAP PO SCH ×3 (08:31→19:58)
[2019-05-19] MEDS: Apixaban 5 MG TAB PO SCH ×2 (08:31→19:59)
[2019-05-19] MEDS: ATENOLOL PO SCH (08:34)
[2019-05-19] MEDS: CHLORTHALIDONE PO SCH (08:34)
[2019-05-19] MEDS ORDERED: Ketorolac Tromethamine 30 MG/ML VIAL IVP PRN (12:02)
--- NOTE | 2019-05-19 15:54 | PDOC.HOSPP ---
- Subjective Encounter Date: 05/19/19 Encounter Time: 15:45 Subjective: f/u for chronic A-fib with associated dyspnea treated with Atenolol/Eliquis. Some persistent dyspnea. No CP, fever. - Objective Vital Signs & Weight: Vital Signs (12 hours) Temp Pulse Resp BP BP Pulse Ox 05/19/19 11:26 98.6 F 89 14 101/55 L 95 05/19/19 07:46 97.9 F 86 18 120/60 96 05/19/19 04:12 97.9 F 94 18 134/76 97 Weight Weight 227 lb 6.4 oz I&O: 05/18/19 05/19/19 05/20/19 06:59 06:59 06:59 Intake Total 200 920 Output Total 950 500 Balance -750 420 Result Diagrams: 05/19/19 05:05 05/19/19 04:58 Additional Labs: Laboratory Tests 05/17/19 05/17/19 17:10 17:10 Carbon Dioxide 25 Creatinine 0.96 B-Natriuretic Peptide 85.7 EKG Reviewed by me: Yes (Tele - A-fib in 80's) Hospitalist ROS - Medication Medications: Active Medications Generic Name Dose Route Start Last Admin Trade Name Freq PRN Reason Stop Dose Admin Apixaban 5 mg 05/18/19 21:00 05/19/19 08:31 Eliquis PO 5 mg BID CONSTANTINE Administration Cefuroxime Axetil 250 mg 05/18/19 21:00 05/19/19 08:30 Ceftin PO 250 mg BID CONSTANTINE Administration Coenzyme Q10 200 mg 05/19/19 09:00 05/19/19 08:30 Coenzyme Q10 PO 200 mg DAILY CONSTANTINE Administration Ezetimibe 10 mg 05/18/19 21:00 05/18/19 20:37 Zetia PO 10 mg QPM CONSTANTINE Administration Famotidine 20 mg 05/18/19 21:00 05/19/19 08:30 Pepcid PO 20 mg BID CONSTANTINE Administration Fish Oil 1,000 mg 05/18/19 21:00 05/19/19 08:30 Fish Oil PO 1,000 mg BID CONSTANTINE Administration Gabapentin 600 mg 05/18/19 21:00 05/18/19 20:35 Neurontin PO 600 mg HS CONSTANTINE Administration Gabapentin 300 mg 05/19/19 09:00 05/19/19 08:31 Neurontin PO 300 mg QAM CONSTANTINE Administration Multivitamins 1 tab 05/19/19 09:00 05/19/19 08:30 Theragran PO 1 tab QAM CONSTANTINE Administration Atenolol/ 1 each 05/19/19 09:00 05/19/19 08:34 Chlorthalidone [ PO 1 each Atenolol- DAILY CONSTANTINE Administration Chlorthalidone 50-25 ] 1 Tablet Nilotinib 150 Mg 2 each 05/18/19 21:00 05/19/19 07:00 Capsule PO 2 each BID CONSTANTINE Administration Potassium Chloride 20 meq 05/18/19 21:00 05/18/19 20:36 K-Dur PO 20 meq QPM CONSTANTINE Administration - Exam General Appearance: NAD, awake alert Eye: PERRL, anicteric sclera ENT: normocephalic atraumatic, no oropharyngeal lesions Neck: supple, symmetric, no JVD, no thyromegaly Heart: no gallops, no rubs, normal peripheral pulses, irregular Respiratory: CTAB, no wheezes, no rales, no ronchi Gastrointestinal: soft, non-tender, non-distended, normal bowel sounds, no palpable masses Extremities: no cyanosis, no clubbing, no edema Skin: normal turgor, no lesions Neurological: cranial nerve grossly intact, no new deficit Musculoskeletal: normal tone, normal strength Psychiatric: normal affect, A&O x 3 Hosp A/P (1) Chronic atrial fibrillation Code(s): I48.20 - CHRONIC ATRIAL FIBRILLATION, UNSPECIFIED Status: Chronic Plan: Rate-controlled, continue Atenolol, Eliquis, EF 55-60%, consider ablation with EP service (2) Dyspnea Code(s): R06.00 - DYSPNEA, UNSPECIFIED Status: Acute Qualifiers: Dyspnea type: dyspnea on exertion Qualified Code(s): R06.09 - Other forms of dyspnea Plan: Likely due to chronic A-fib, consider ablation therapy,, EP consult pending (3) Acute kidney injury superimposed on CKD Code(s): N17.9 - ACUTE KIDNEY FAILURE, UNSPECIFIED; N18.9 - CHRONIC KIDNEY DISEASE, UNSPECIFIED Status: Acute Plan: Likely iatrogenic, decrease Toradol 15mg IV q6h prn pain, avoid nephrotoxic meds and limit contrast exposure (4) Chronic myeloid leukemia Code(s): C92.10 - CHRONIC MYELOID LEUK, BCR/ABL-POSITIVE, NOT ACHIEVE REMIS Status: Chronic Plan: Stable, continue Tasigna (5) Hypertension Code(s): I10 - ESSENTIAL (PRIMARY) HYPERTENSION Status: Chronic Qualifiers: Hypertension type: essential hypertension Qualified Code(s): I10 - Essential (primary) hypertension Plan: Stable, continue home BP regimen - Plan plan discussed w/ family, out of bed/ambulate, DVT proph w/SCDs Stable currently Await EP consult regarding utility of ablation Continue Eliquis Continue Atenolol Decrease Toradol 15mg IV q6h prn AM lab: BMP
[2019-05-19] MEDS: Ezetimibe 10 MG TAB PO SCH (19:58)
[2019-05-19] MEDS: Potassium Chloride 20 MEQ TAB PO SCH (19:58)
[2019-05-19] MEDS: Ramipril 5 MG CAP PO SCH (19:59)
[2019-05-20 05:27] LABS: Anion Gap 14 mmol/L (10-20); BUN (Urea Nitrogen) 20 mg/dL (9.8-20.1); Calc. Creatinine Clearance 64 mL/min (70-130); Calcium 9.1 mg/dL (7.8-10.44); Carbon Dioxide 26 mmol/L (23-31); Chloride 105 mmol/L (98-107); Estimated GFR-MDRD 40; Glucose 85 mg/dL (83-110); Potassium 3.5 mmol/L (3.5-5.1); Sodium 141 mmol/L (136-145)
[2019-05-20] MEDS: NILOTINIB 150 MG PO SCH ×2 (07:00→18:45)
[2019-05-20] MEDS: Cefuroxime Axetil 250 MG TAB PO SCH ×2 (08:23→20:55)
[2019-05-20] MEDS: Famotidine 20 MG TAB PO SCH ×2 (08:23→20:55)
[2019-05-20] MEDS: Apixaban 5 MG TAB PO SCH (08:23)
[2019-05-20] MEDS: Multivit, Therapeutic 1 TAB PO SCH (08:24)
[2019-05-20] MEDS: Ubidecarenone 50 MG CAP PO SCH (08:24)
[2019-05-20] MEDS: Gabapentin 300 MG CAP PO SCH ×3 (08:24→20:58)
[2019-05-20] MEDS: Fish Oil 1,000 MG CAP PO SCH ×2 (08:24→20:58)
[2019-05-20] MEDS: CHLORTHALIDONE PO SCH (08:27)
[2019-05-20] MEDS: ATENOLOL PO SCH (08:27)
--- NOTE | 2019-05-20 09:31 | PDOC.HOSPP ---
- Subjective Encounter Date: 05/20/19 Encounter Time: 12:10 Subjective: Patient with ALEXANDRA, ok at rest. No chest pain. - Objective Vital Signs & Weight: Vital Signs (12 hours) Temp Pulse Resp BP Pulse Ox 05/20/19 07:49 97.2 F L 70 16 103/53 L 99 05/20/19 03:58 97.9 F 77 16 99/55 L 98 05/19/19 23:47 97.9 F 80 18 104/59 L 96 Weight Weight 227 lb 6.4 oz I&O: 05/19/19 05/20/19 05/21/19 06:59 06:59 06:59 Intake Total 920 1340 Output Total 500 1300 Balance 420 40 Result Diagrams: 05/19/19 05:05 05/20/19 04:41 Hospitalist ROS - Review of Systems Constitutional: denies: fever, chills Respiratory: reports: SOB with excertion. denies: cough Cardiovascular: denies: chest pain, palpitations Gastrointestinal: denies: nausea, vomiting, abdominal pain - Medication Medications: Active Medications Generic Name Dose Route Start Last Admin Trade Name Freq PRN Reason Stop Dose Admin Apixaban 5 mg 05/18/19 21:00 05/20/19 08:23 Eliquis PO 5 mg BID CONSTANTINE Administration Cefuroxime Axetil 250 mg 05/18/19 21:00 05/20/19 08:23 Ceftin PO 250 mg BID CONSTANTINE Administration Coenzyme Q10 200 mg 05/19/19 09:00 05/20/19 08:24 Coenzyme Q10 PO 200 mg DAILY CONSTANTINE Administration Ezetimibe 10 mg 05/18/19 21:00 05/19/19 19:58 Zetia PO 10 mg QPM CONSTANTINE Administration Famotidine 20 mg 05/18/19 21:00 05/20/19 08:23 Pepcid PO 20 mg BID CONSTANTINE Administration Fish Oil 1,000 mg 05/18/19 21:00 05/20/19 08:24 Fish Oil PO 1,000 mg BID CONSTANTINE Administration Gabapentin 600 mg 05/18/19 21:00 05/19/19 19:58 Neurontin PO 600 mg HS CONSTANTINE Administration Gabapentin 300 mg 05/19/19 09:00 05/20/19 08:24 Neurontin PO 300 mg QAM CONSTANTINE Administration Gabapentin 300 mg 05/19/19 15:00 05/19/19 16:40 Neurontin PO 300 mg 1500 CONSTANTINE Administration Multivitamins 1 tab 05/19/19 09:00 05/20/19 08:24 Theragran PO 1 tab QAM CONSTANTINE Administration Atenolol/ 1 each 05/19/19 09:00 05/20/19 08:27 Chlorthalidone [ PO 1 each Atenolol- DAILY CONSTANTINE Administration Chlorthalidone 50-25 ] 1 Tablet Nilotinib 150 Mg 2 each 05/18/19 21:00 05/20/19 07:00 Capsule PO 2 each BID CONSTANTINE Administration Potassium Chloride 20 meq 05/18/19 21:00 05/19/19 19:58 K-Dur PO 20 meq QPM CONSTANTINE Administration Ramipril 10 mg 05/19/19 21:00 05/19/19 19:59 Altace PO 10 mg HS CONSTANTINE Administration - Exam General Appearance: NAD, awake alert ENT: moist mucosa Heart: no murmur, no gallops, no rubs, irregular Respiratory: CTAB, no wheezes, no rales, no ronchi Gastrointestinal: soft, non-tender, non-distended, normal bowel sounds Extremities: no edema Psychiatric: normal affect, normal behavior, A&O x 3 Psychiatric - other findings: a little tearful sometimes when describing symptoms, worrying Hosp A/P (1) Chronic atrial fibrillation Code(s): I48.20 - CHRONIC ATRIAL FIBRILLATION, UNSPECIFIED Status: Chronic (2) Dyspnea Code(s): R06.00 - DYSPNEA, UNSPECIFIED Status: Acute Qualifiers: Dyspnea type: dyspnea on exertion Qualified Code(s): R06.09 - Other forms of dyspnea (3) Acute kidney injury superimposed on CKD Code(s): N17.9 - ACUTE KIDNEY FAILURE, UNSPECIFIED; N18.9 - CHRONIC KIDNEY DISEASE, UNSPECIFIED Status: Acute (4) Chronic myeloid leukemia Code(s): C92.10 - CHRONIC MYELOID LEUK, BCR/ABL-POSITIVE, NOT ACHIEVE REMIS Status: Chronic (5) Hypertension Code(s): I10 - ESSENTIAL (PRIMARY) HYPERTENSION Status: Chronic Qualifiers: Hypertension type: essential hypertension Qualified Code(s): I10 - Essential (primary) hypertension - Plan EP consult for possible ablation, Dr. Kee planning on cath tomorrow on Elliquis Creatinine improving a bit
[2019-05-20] MEDS ORDERED: Communication Order-Pharmacy FS SCH (17:30)
--- NOTE | 2019-05-20 17:57 | CON ---
DATE OF CONSULTATION: REASON FOR CONSULTATION: Shortness of breath and neck and jaw tightness. HISTORY OF PRESENT ILLNESS: Ms. Pearce is a 74-year-old woman, I have seen and evaluated in the past. She was recently seen last week in the office. She complained of continued shortness of breath. She had a normal stress study. She had an angiogram performed in 2016 that was within normal limits. No significant blockage present. She was referred to Pulmonary, and Dr. Angel was concerned about a primary lung issue. She recently presented with the above symptoms. PAST MEDICAL HISTORY: Hypertension, hyperlipidemia, paroxysmal atrial fibrillation, CML. HOME MEDICATIONS: Include, 1. Gabapentin. 2. CoQ10. 3. Atenolol/chlorthalidone. 4. Tasigna. 5. Zetia. 6. Altace. 7. Potassium. 8. Eliquis. PAST SURGICAL HISTORY: Appendectomy, cholecystectomy, carpal tunnel release, . REVIEW OF SYSTEMS: Ten-point review of systems is reviewed and as above, negative. PHYSICAL EXAMINATION: GENERAL: Patient is a pleasant female, who is in no acute distress. The patient appears their stated age. VITAL SIGNS: Blood pressure 121/77, pulse 70, temperature 97.1. NEUROLOGIC: The patient is alert and oriented x3 with no focal neurologic deficits. HEENT: Sclerae without icterus. Mouth has moist mucous membranes with normal pallor. NECK: No JVD. Carotid upstroke brisk. No bruits bilaterally. LUNGS: Clear to auscultation with unlabored respirations. BACK: No scoliosis or kyphosis. CARDIAC: Irregularly irregular rate and rhythm with normal S1 and S2. No S3 or S4 noted. No significant rubs, murmurs, thrills, or gallops noted throughout the precordium. PMI is not displaced. There is no parasternal heave. ABDOMEN: Soft, nontender, nondistended. No peritoneal signs present. No hepatosplenomegaly. No abnormal striae. EXTREMITIES: 2+ femoral and 2+ dorsalis pedis pulses. No cyanosis, clubbing, or edema. SKIN: No gross abnormalities. PERTINENT LABORATORY DATA: Hemoglobin 14.3. Creatinine 1.3. IMPRESSION: 1. Recurrent shortness of breath and neck and jaw tightness. 2. . 3. Chronic atrial fibrillation. RECOMMENDATIONS: I discussed proceeding with coronary angiography while in the office. At this point, she would like to proceed. She would like to get more answers on her current symptomatology. Therefore, I discussed procedure in full detail with Geetha Ramses. Risks included, not limited to the following. The risks of the procedure were also discussed. The risks of the procedure include but are not limited to the following: , stroke, NM, need for emergency surgery, loss of limb, bleeding, and infection, as well as a reaction to the dye causing kidney failure and needing long-term dialysis. I also discussed the risks of PCI to include all of the above including coronary dissection and perforation in addition to acute stent thrombosis and restenosis. All questions about the procedure were answered. Given the above, the patient agreed to proceed with the above procedure. The patient received a dose of Eliquis this morning. We will proceed with a right arm approach. Groin approach would have to wait until Monday. Job ID: [id number]
[2019-05-20] MEDS: Sodium Chloride 0.9% 1,000 ML IV SCH (19:16)
[2019-05-20] MEDS: Ezetimibe 10 MG TAB PO SCH (20:57)
[2019-05-20] MEDS: Ramipril 5 MG CAP PO SCH (20:57)
[2019-05-20] MEDS: Potassium Chloride 20 MEQ TAB PO SCH (20:58)
[2019-05-21 05:19] LABS: Anion Gap 12 mmol/L (10-20); BUN (Urea Nitrogen) 18 mg/dL (9.8-20.1); Calc. Creatinine Clearance 72 mL/min (70-130); Carbon Dioxide 26 mmol/L (23-31); Chloride 107 mmol/L (98-107); Estimated GFR-MDRD 47; Glucose 94 mg/dL (83-110); Potassium 3.5 mmol/L (3.5-5.1); Sodium 141 mmol/L (136-145)
[2019-05-21] MEDS: Sodium Chloride 0.9% 1,000 ML IV SCH (05:54)
[2019-05-21] MEDS: Ubidecarenone 50 MG CAP PO SCH (05:55)
[2019-05-21] MEDS: Multivit, Therapeutic 1 TAB PO SCH (05:56)
[2019-05-21] MEDS: Famotidine 20 MG TAB PO SCH (05:57)
[2019-05-21] MEDS: Cefuroxime Axetil 250 MG TAB PO SCH (05:57)
[2019-05-21] MEDS: Gabapentin 300 MG CAP PO SCH (05:57)
[2019-05-21] MEDS: Fish Oil 1,000 MG CAP PO SCH (05:58)
[2019-05-21] MEDS: ATENOLOL PO SCH (06:01)
[2019-05-21] MEDS: CHLORTHALIDONE PO SCH (06:01)
[2019-05-21] MEDS ORDERED: Heparin 10,000 UNITS/1 ML VIAL ONE (06:37)
[2019-05-21] MEDS ORDERED: Heparin (Artline) 1,000 ML ONE (06:37)
[2019-05-21] MEDS ORDERED: Nitroglycerin 100MG/250ML BOT 250 ML ONE (06:37)
[2019-05-21] MEDS ORDERED: Verapamil 5 MG/2 ML VIAL ONE (06:37)
[2019-05-21] MEDS ORDERED: Lidocaine 1% (PF) 30 ML VIAL ONE (06:37)
[2019-05-21] MEDS ORDERED: Adenosine 6 MG/2 ML VIAL ONE (07:12)
[2019-05-21] MEDS ORDERED: Midazolam HCl 2 mg/2 ml Vial ONE (07:14)
[2019-05-21] MEDS ORDERED: Fentanyl 100 MCG/2 ML VIAL ONE (07:14)
[2019-05-21] MEDS ORDERED: Nitroglycerin 4.9 GM Bottle ONE (07:35)
[2019-05-21] MEDS ORDERED: Sodium Chloride 0.9% 200 ML IV PRN (07:40)
[2019-05-21] MEDS ORDERED: Nitroglycerin 0.4 MG TAB (25 Tab Bottle) SL PRN (07:40)
[2019-05-21] MEDS ORDERED: Sodium Chloride 0.9% 1,000 ML IV SCH (07:45)
[2019-05-21] MEDS: NILOTINIB 150 MG PO SCH (07:57)
[2019-05-21] MEDS ORDERED: Iopamidol 370 76% 100 ML VIAL ONE (09:11)
--- NOTE | 2019-05-21 09:28 | PDOC.HOSPP ---
- Subjective Encounter Date: 05/21/19 Encounter Time: 12:00 Subjective: Patient with some ALEXANDRA as before. No chest pain. No SOB at rest. - Objective Vital Signs & Weight: Vital Signs (12 hours) Temp Pulse Resp BP BP Pulse Ox 05/21/19 08:00 98.0 F 74 18 113/62 97 05/21/19 05:00 83 128/60 05/21/19 04:17 98.3 F 80 14 102/71 96 05/20/19 22:30 88 18 121/56 L 97 Weight Weight 223 lb 6.4 oz I&O: 05/20/19 05/21/19 05/22/19 06:59 06:59 06:59 Intake Total 1340 1711 Output Total 1300 1900 Balance 40 -189 Result Diagrams: 05/19/19 05:05 05/21/19 04:37 Hospitalist ROS - Review of Systems Constitutional: denies: fever, chills Respiratory: reports: SOB with excertion. denies: cough, shortness of breath Cardiovascular: reports: palpitations. denies: chest pain Gastrointestinal: denies: nausea, vomiting, abdominal pain Other: thick yellow sputum in throat each morning - Medication Medications: Active Medications Generic Name Dose Route Start Last Admin Trade Name Freq PRN Reason Stop Dose Admin Cefuroxime Axetil 250 mg 05/18/19 21:00 05/21/19 05:57 Ceftin PO 250 mg BID CONSTANTINE Administration Coenzyme Q10 200 mg 05/19/19 09:00 05/21/19 05:55 Coenzyme Q10 PO 200 mg DAILY CONSTANTINE Administration Ezetimibe 10 mg 05/18/19 21:00 05/20/19 20:57 Zetia PO 10 mg QPM CONSTANTINE Administration Famotidine 20 mg 05/18/19 21:00 05/21/19 05:57 Pepcid PO 20 mg BID CONSTANTINE Administration Fish Oil 1,000 mg 05/18/19 21:00 05/21/19 05:58 Fish Oil PO 1,000 mg BID CONSTANTINE Administration Gabapentin 600 mg 05/18/19 21:00 05/20/19 20:58 Neurontin PO 600 mg HS CONSTANTINE Administration Gabapentin 300 mg 05/19/19 09:00 05/21/19 05:57 Neurontin PO 300 mg QAM CONSTANTINE Administration Gabapentin 300 mg 05/19/19 15:00 05/20/19 15:31 Neurontin PO 300 mg 1500 CONSTANTINE Administration Sodium Chloride 1,000 mls @ 125 mls/hr 05/21/19 07:45 05/21/19 07:57 Normal Saline 0.9% IV 05/21/19 11:46 1,000 mls .Q8H CONSTANTINE Administration Multivitamins 1 tab 05/19/19 09:00 05/21/19 05:56 Theragran PO 1 tab QAM CONSTANTINE Administration Atenolol/ 1 each 05/19/19 09:00 05/21/19 06:01 Chlorthalidone [ PO 1 each Atenolol- DAILY CONSTANTINE Administration Chlorthalidone 50-25 ] 1 Tablet Nilotinib 150 Mg 2 each 05/18/19 21:00 05/21/19 07:57 Capsule PO 2 each BID CONSTANTINE Administration Potassium Chloride 20 meq 05/18/19 21:00 05/20/19 20:58 K-Dur PO 20 meq QPM CONSTANTINE Administration Ramipril 10 mg 05/19/19 21:00 05/20/19 20:57 Altace PO 10 mg HS CONSTANTINE Administration - Exam General Appearance: NAD, awake alert ENT: moist mucosa Heart: no murmur, no gallops, no rubs, normal peripheral pulses, irregular Respiratory: CTAB, no wheezes, no rales, no ronchi Gastrointestinal: soft, non-tender, non-distended, normal bowel sounds Extremities: no edema Extremities - other findings: right radial artery dressing in place, no bleeding or swelling Psychiatric: normal affect, normal behavior, A&O x 3 Hosp A/P (1) Chronic atrial fibrillation Code(s): I48.20 - CHRONIC ATRIAL FIBRILLATION, UNSPECIFIED Status: Chronic (2) Dyspnea Code(s): R06.00 - DYSPNEA, UNSPECIFIED Status: Acute Qualifiers: Dyspnea type: dyspnea on exertion Qualified Code(s): R06.09 - Other forms of dyspnea (3) Acute kidney injury superimposed on CKD Code(s): N17.9 - ACUTE KIDNEY FAILURE, UNSPECIFIED; N18.9 - CHRONIC KIDNEY DISEASE, UNSPECIFIED Status: Acute (4) Chronic myeloid leukemia Code(s): C92.10 - CHRONIC MYELOID LEUK, BCR/ABL-POSITIVE, NOT ACHIEVE REMIS Status: Chronic (5) Hypertension Code(s): I10 - ESSENTIAL (PRIMARY) HYPERTENSION Status: Chronic Qualifiers: Hypertension type: essential hypertension Qualified Code(s): I10 - Essential (primary) hypertension - Plan Dr. eKe did cath this AM, no significant stenosis requiring stenting EP consulted for possible ablation- f/u outpatient on Elliquis (holding for cath) Creatinine improving a bit Cleared to discharge by cardiology. F/u Pulmonology as previously directed this week.
[2019-05-21 11:41] VITALS: BP 120/55; TEMP 97.7
--- NOTE | 2019-05-21 17:55 | PDOC.EP ---
- Subjective Date: 05/21/19 Time: 08:00 Interval History: follow up for atrial fibrillation. Patient continues to have SOB and productive cough, which is being managed by Dr Angel. Likely DC later today. - Review of Systems Constitutional: denies: chills, fever, malaise Respiratory: reports: cough, shortness of breath, sputum. denies: hemoptysis, pleuritic pain Cardiology: denies: chest pain, edema, heart racing, light headedness, passing out - Objective Allergies/Adverse Reactions: Allergies Allergy/AdvReac Type Severity Reaction Status Date / Time codeine Allergy Verified 12/15/17 13:43 levofloxacin [From Levaquin] Allergy Verified 12/15/17 13:43 Vital Signs & Weight: Vital Signs Temp Pulse Resp BP Pulse Ox 05/21/19 11:40 97.7 F 63 17 120/55 L 95 05/21/19 08:00 98.0 F 74 18 113/62 97 Weight 223 lb 6.4 oz I/O: I/O 05/20/19 05/21/19 05/22/19 06:59 06:59 06:59 Intake Total 1340 1711 Output Total 1300 1900 Balance 40 -189 - Quality Measures Condition: Atrial Fibrillation/Flutter (hx or current) CV meds: Eliquis: Yes - Physical Exam General: alert & oriented x3, appears well, no apparent distress, speech clear, affect appropriate HEENT: mucus membranes moist, normocephaly Neck: supple neck, midline trachea, no JVD/HJR, no masses, no bruit, no lymphadenopathy, no thromegaly Cardiology: irregularly irregular Lungs: clear to auscultation, normal breath sounds, no wheeze, rales, rhonchi Neurology: cranial nerve 2-12 intact, grossly intact, sensory function intact - Labs Result Diagrams: 05/19/19 05:05 05/21/19 04:37 - EKG Interpretation EKG Method: Telemetry EKG shows: Atrial fibrillation - Assessment/Plan Assessment/Plan: 1. Persistent atrial fibrillation -rate controlled - poor AAD options - will discuss possibility of PVAI as OP 2. SOB -unknown etiology. LHC normal. Ongoing bronchitis with productive cough. Could also be related to A Fib. 3. Chronic OAC on eliquis DC with rate control as prescribed. Will see back in clinic in 3-4 weeks after respiratory evaluation is completed to discuss treatment options moving forward. recent echo on 04/11 shows EF 55-60%. LA= 4.28cm and moderately dilated.
--- NOTE | 2019-05-22 06:39 | DIS ---
DATE OF ADMISSION: 05/17/2019 DATE OF DISCHARGE: 05/21/2019 PRIMARY CARE PHYSICIAN: Jose Enrique Donald MD. REASON FOR ADMISSION: Shortness of breath and neck pain. DIAGNOSES AT DISCHARGE: 1. Chronic atrial fibrillation. 2. Dyspnea. 3. Acute on chronic renal failure. 4. Chronic myeloid leukemia. 5. Hypertension. PROCEDURES: Cardiac cath reportedly without significant abnormalities per Dr. Kee. CONSULTATIONS: 1. Cardiology, Dr. Kee. 2. Electrophysiology, Dr. Alfonso. SUMMARY OF HOSPITAL COURSE: This is a 74-year-old white female with a history of chronic atrial fibrillation, on chronic anticoagulation with Eliquis, complaining of progressive and increasing shortness of breath with minimal activity or exertion. 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 Kee, and with her specialty development consultant, Dr. Angel. She had been noting progressive shortness of breath also with some phlegm at the back of her throat in the mornings, placed on Ceftin for bronchitis by her specialty development consultant. She started to feel active palpitations and heart racing in her left neck with increased work of breathing, so she came into the hospital. In the hospital, her atrial fibrillation was rate controlled. She had negative troponins. Dr. Kee was consulted as well as Dr. Alfonso. They eventually determined to do a catheterization. Dr. Kee performed this, did not find significant disease that needed stenting or surgery. Dr. Alfonso is considering workup for possible repeat attempted ablation as an outpatient. On the day of discharge, the patient was doing well without any chest pain and is being discharged home. DISCHARGE MANAGEMENT: Discharged home. FOLLOWUP: Follow up with Dr. Alfonso as indicated by his office with Dr. Angel. Call his office for that appointment as he was supposed to set up a procedure for her this week and with Dr. Donald in one week. ACTIVITY: As tolerated. DIET: Healthy-heart diet. DISCHARGE MEDICATIONS: Continue all home medications. 1. Eliquis 5 mg twice a day. 2. Atenolol/chlorthalidone 50/25 mg one tab each morning. 3. Ceftin 250 mg twice a day. 4. Erythromycin base ointment applied to each eye at night. 5. Zetia 10 mg daily. 6. Gabapentin 300 mg 3 times a day and 600 at night. 7. Multivitamin daily. 8. Tasigna 300 mg twice a day. 9. [place]-3 fish oil one capsule twice a day. 10. Potassium chloride 20 mEq twice a day. 11. Ramipril 10 mg at night. 12. Triamcinolone cream as needed. 13. CoQ10, 200 mg each morning. Job ID: [id number]
--- NOTE | 2019-05-22 07:49 | CON ---
DATE OF CONSULTATION: 05/20/2019 Dictated by Carolann Bruce PA-C, as scribe for Dr. Konstantin Alfonso. REASON FOR CONSULTATION: Atrial fibrillation. CONSULTING PHYSICIAN: Dr. Konstantin Alfonso. HISTORY OF PRESENT ILLNESS: Ms. Pearce is a 74-year-old woman with longstanding persistent atrial fibrillation, on chronic anticoagulation with Eliquis. She has been having dyspnea on exertion with some progressive shortness of breath and presented to the emergency room for evaluation. Ms. Pearce is recently known to us as an outpatient as well. She has undergone 5 prior cardioversions, the most recent 1 attempted was in December , but that failed. She has a CML, requiring chronic chemotherapy since 2016 with Tasigna. Unfortunately, this medication has interactions with most of her antiarrhythmic options and resulted in QT prolongation. Largely, she has been rate controlled in the past. Her recent dyspnea on exertion symptoms are thought to possibly be related to atrial fibrillation. She has had a heart catheterization in 2016, that showed a preserved ejection fraction and no significant or obstructive coronary artery disease. Also of note, she had recently been placed on Ceftin for bronchitis 48 hours prior to admission. Since admission, her heart rate does show good control with ventricular rates between 65 and 90 beats per minute. She is on atenolol 50 mg daily for rate control. Ms. Pearce continues to have some shortness of breath and dyspnea on exertion. Otherwise, she is overall feeling fairly well today. She does not have any additional cardiac concerns or complaints. REVIEW OF SYSTEMS: A 12-point review of systems was conducted and is negative except that listed above in HPI. PAST MEDICAL HISTORY: 1. Longstanding persistent atrial fibrillation, diagnosed in 10/2017 with 5 prior cardioversions, most recently failed in December . 2. Peripheral neuropathy. 3. Hypertension. 4. Obstructive sleep apnea, on CPAP at night. 5. Hyperlipidemia. 6. Chronic myelocytic leukemia, in remission, requiring long-term chemotherapy with Tasigna. 7. Morbid obesity. 8. Diverticulosis. 9. Restless legs syndrome. SURGICAL HISTORY: 1. Foot surgery. 2. Carpal tunnel release. 3. Cholecystectomy. 4. section x2. 5. Appendectomy. 6. Partial colectomy for diverticulitis. 7. Resection of pituitary tumor. 8. Lumbar spine surgery. 9. Benign breast tumor resection. 10. Cardiac catheterization in 2013 and 2016. 11. Colonoscopy. 12. Cataract removal. 13. Cardioversion x5, most recently failed in December . ALLERGIES: CODEINE AND LEVAQUIN. MEDICATIONS: 1. Atenolol/chlorthalidone 50/25 mg daily. 2. Ceftin 250 mg p.o. b.i.d. 3. Zetia 10 mg nightly. 4. Gabapentin 300 mg q.a.m. and 600 mg q.p.m. 5. Multivitamin daily. 6. Tasigna 300 mg p.o. b.i.d. 7. [place]-3 fatty acids b.i.d. 8. K-Dur 20 mEq daily. 9. Altace 10 mg nightly. 10. CoQ10 of 200 mg q.a.m. 11. Eliquis 5 mg b.i.d. FAMILY HISTORY: Mother had a CVA and breast cancer. SOCIAL HISTORY: . Denies alcohol, tobacco, or illicit drug use. Activity limited due to dyspnea on exertion. OBJECTIVE: VITAL SIGNS: Temperature 97.3, pulse 68, blood pressure 100/55, oxygen is 99% on room air, and respirations 18. GENERAL: The patient is alert and oriented. Speech is clear. Affect is appropriate. She is in no apparent distress at the time of exam. NECK: Supple without jugular venous distention. There is no lymphadenopathy. Trachea is midline. HEART: Rate is irregularly irregular. PMI is nondisplaced. LUNGS: Respirations are even and nonlabored with good bilateral excursion. Breath sounds are clear in the upper lobes with some faint expiratory wheezes bilaterally. ABDOMEN: Obese, soft, and nontender without palpable masses. EXTREMITIES: Warm and dry to touch without clubbing or cyanosis. NEUROLOGIC: Grossly intact. Nonfocal. Gait was not assessed. LABORATORY DATA: Hematology was unremarkable. Chemistry: Sodium 141, potassium 3.5, and creatinine 1.3. Serial troponins were negative. BNP was 85. Telemetry and EKG shows atrial fibrillation, largely with controlled ventricular rates. IMPRESSION: 1. Longstanding persistent atrial fibrillation with episodes of rapid ventricular response with 5 prior cardioversions. 2. Elevated CHADS-VASc score of 3, on Eliquis for cerebrovascular accident prophylaxis. 3. Chronic myelocytic leukemia, in remission, but requiring chronic chemotherapy. 4. Hypertension. 5. Morbid obesity. 6. Recent bronchitis/upper respiratory infection. PLAN AND RECOMMENDATIONS: Ms. Pearce is a 74-year-old woman, complaining of increasing dyspnea on exertion and shortness of breath. She is known to have longstanding persistent atrial fibrillation that was diagnosed in 10/2017, and has failed 5 prior cardioversions. She has extremely limited antiarrhythmic medication options with her need for ongoing therapy with Tasigna that produces QT prolongation. For the most part, she has been rate controlled in the past, but does exhibit some RVR here during her hospital stay. In long-term, she may benefit from a PVAI after ischemic evaluation. This was discussed with Cardiology, and I believe the plan moving forward is to proceed with a left heart catheterization. At this point, no record of an echocardiogram is available in the electronic chart at [facility]. Given the nature of her atrial fibrillation, her atria may be significantly enlarged, which suggests this may be a multi-ablation approach if ablation is the desired path. At this point, I suspect her shortness of breath and dyspnea on exertion is multifactorial. It could be related to the occasional RVR with her atrial fibrillation that she is having versus bronchitis and upper respiratory infection that proceeded her present presentation to the emergency room. Alternatively, coronary artery disease is a possibility as well, thus the left heart catheterization that will be coming up. Thank you for allowing me to participate in the care of this patient. We will continue to follow. Job ID: [id number]
== END 2019-05-21 14:16 | disposition home or self-care (01) ==
LOC: ERS 16:31 → 2SW 18:12
PROVIDERS: ADMIT Internal Medicine; ATTEND Internal Medicine
PROC: 4A023N7 Measurement of Cardiac Sampling and Pressure, Left Heart, Percutaneous Approach (ICD-10-PCS; principal; 2019-05-17)
PROC: B2111ZZ Fluoroscopy of Multiple Coronary Arteries using Low Osmolar Contrast (ICD-10-PCS; 2019-05-17)
DX: I48.20 Chronic atrial fibrillation, unspecified (principal); I25.10 Atherosclerotic heart disease of native coronary artery without angina pectoris; I12.9 Hypertensive chronic kidney disease with stage 1 through stage 4 chronic kidney disease, or unspecified chronic kidney disease; N18.9 Chronic kidney disease, unspecified; N17.9 Acute kidney failure, unspecified; C92.11 Chronic myeloid leukemia, BCR/ABL-positive, in remission; E78.5 Hyperlipidemia, unspecified; G47.33 Obstructive sleep apnea (adult) (pediatric); G62.9 Polyneuropathy, unspecified; E66.01 Morbid (severe) obesity due to excess calories; Z68.36 Body mass index [BMI] 36.0-36.9, adult; Z79.01 Long term (current) use of anticoagulants; Z79.899 Other long term (current) drug therapy; Z88.5 Allergy status to narcotic agent; Z88.1 Allergy status to other antibiotic agents; Z99.89 Dependence on other enabling machines and devices
CPT/HCPCS: 71046; 76942; 80048 ×3; 80053; 82550; 83880; 84484 ×2; 85007; 85025; 85027; 93005; 93458; 96361 ×2; 96374; 99285; C1769; G0378 ×6; 36415; 99152; J0153; J1630; J1644; J1885; J2001; J2060; J2250; J3010; Q9967

== ENCOUNTER 2019-05-29 14:41 | Outpatient (CLI) | payer MEDICARE ==
--- NOTE | 2019-05-29 15:30 | CT ---
EXAM: High-resolution CT of the chest without contrast HISTORY: Coughing up mucus in the morning after she wakes up COMPARISON: None TECHNIQUE: Multiple contiguous axial images were obtained in a CT the chest without contrast. Thin sl ices were taken at large intervals. This was performed in the supine and prone positions. Coronal reformats were performed. FINDINGS: HEART: Normal in size without focal cardiac abnormality. Atherosclerotic calcification are seen in th e coronary arteries and aorta. MEDIASTINUM: No hilar or mediastinal lymphadenopathy. Evaluation of the mediastinum is limited withou t IV contrast. LUNGS: A calcified granuloma is seen in the left lower lobe. No focal infiltrates, suspicious nodules, or m asses. Evaluation is limited given the large intervals. No significant interstitial thickening. No honeycombing. No bronchiectasis. No emphysematous changes. PLEURAL SPACE: No pneumothorax or pleural effusion. CHEST WALL SOFT TISSUES: Unremarkable OSSEOUS STRUCTURES: Degenerative changes in the spine. VISUALIZED SUBDIAPHRAGMATIC STRUCTURES: Unremarkable IMPRESSION: 1. No significant interstitial lung disease.
== END 2019-05-29 14:42 | disposition home or self-care (01) ==
LOC: BICCT 14:41
PROVIDERS: ATTEND Internal Medicine Critical Care Medicine
DX: J47.9 Bronchiectasis, uncomplicated (principal)
CPT/HCPCS: 71250

== ENCOUNTER 2019-08-23 11:33 | Emergency (ER) | payer MEDICARE ==
[2019-08-23 12:32] LABS: #Basophils 0.1 thou/uL (0.0-0.2); #Eosinphils 0.1 thou/uL (0.0-0.7); #Lymphocytes 1.8 thou/uL (1.20-3.40); #Monocytes 0.7 thou/uL (0.11-0.59); #Neutrophils 5.4 thou/uL (1.40-6.50); %Eosinophils 1.5 % (0.0-10.0); %Lymphocytes 22.2 % (21.0-51.0); %Monocytes 8.5 % (0.0-10.0); %Neutrophils 66.8 % (42.0-75.0); Hemoglobin 14.3 g/dL (12.0-16.0); Mean Corpuscular HGB CONC 33.6 g/dL (32.0-36.0); Mean Corpuscular Hemoglobin 30.2 pg (27.0-31.0); Mean Corpuscular Volume 89.9 fL (78.0-98.0); Mean Platelet Volume 7.9 fL (7.4-10.4); Platelet Count 230 thou/uL (130-400); RBC Distribution Width 12.4 % (11.5-14.5); Red Blood Cell (RBC) Count 4.73 mill/uL (4.20-5.40); White Blood Cell (WBC) Count 8.1 thou/uL (4.8-10.8)
--- NOTE | 2019-08-23 12:42 | RAD ---
RADIOGRAPH CHEST 1 VIEW: DATE: 08/23/2019 HISTORY: 74-year-old female with chest pain and dyspnea FINDINGS: There is no airspace density, pulmonary edema, or pneumothorax. The lateral costophrenic angles are n ot effaced. IMPRESSION: No acute pulmonary findings.
[2019-08-23 12:58] LABS: ALT (SGPT) 35 U/L (8-55); AST (SGOT) 35 U/L (5-34); Albumin 4.1 g/dL (3.4-4.8); Alkaline Phosphatase 102 U/L (40-110); Anion Gap 15 mmol/L (10-20); BUN (Urea Nitrogen) 11 mg/dL (9.8-20.1); Bilirubin, Total 1.5 mg/dL (0.2-1.2); Calc. Creatinine Clearance 0 mL/min (70-130); Calcium 10.2 mg/dL (7.8-10.44); Carbon Dioxide 25 mmol/L (23-31); Chloride 105 mmol/L (98-107); Estimated GFR-MDRD 62; Globulin 2.8 g/dL (2.4-3.5); Glucose 136 mg/dL (83-110); Lipase 12 U/L (8-78); Potassium 4.3 mmol/L (3.5-5.1); Protein, Total 6.9 g/dL (6.0-8.3); Sodium 141 mmol/L (136-145)
[2019-08-23] MEDS ORDERED: Acetaminophen 500 MG TAB ONE (14:09)
== END 2019-08-23 14:45 | disposition home or self-care (01) ==
LOC: ERS 11:33
DX: I48.91 Unspecified atrial fibrillation (principal); E78.5 Hyperlipidemia, unspecified; I10 Essential (primary) hypertension; G47.30 Sleep apnea, unspecified; Z79.01 Long term (current) use of anticoagulants; Z79.899 Other long term (current) drug therapy
CPT/HCPCS: 71045; 80053; 83690; 84484; 85025; 93005; 94760

== ENCOUNTER 2020-04-03 10:14 | Emergency (ER) | payer MEDICARE ==
[2020-04-03] MEDS ORDERED: Ketorolac Tromethamine 30 MG/ML VIAL ONE (11:01)
[2020-04-03 11:23] LABS: #Basophils 0.1 thou/uL (0.0-0.2); #Eosinphils 0.1 thou/uL (0.0-0.7); #Monocytes 0.8 thou/uL (0.11-0.59); #Neutrophils 7.5 thou/uL (1.40-6.50); %Basophils 0.9 % (0.0-1.0); %Eosinophils 1.2 % (0.0-10.0); %Lymphocytes 19.2 % (21.0-51.0); %Monocytes 7.6 % (0.0-10.0); %Neutrophils 71.2 % (42.0-75.0); Hemoglobin 13.9 g/dL (12.0-16.0); Mean Corpuscular HGB CONC 32.9 g/dL (32.0-36.0); Mean Corpuscular Hemoglobin 28.8 pg (27.0-31.0); Mean Corpuscular Volume 87.6 fL (78.0-98.0); Mean Platelet Volume 7.8 fL (7.4-10.4); Platelet Count 251 thou/uL (130-400); RBC Distribution Width 13.2 % (11.5-14.5); Red Blood Cell (RBC) Count 4.83 mill/uL (4.20-5.40); White Blood Cell (WBC) Count 10.5 thou/uL (4.8-10.8)
--- NOTE | 2020-04-03 11:37 | RAD ---
XR Chest 1 View Portable History: Cough Comparison: Radiograph August 23, 2019 Findings: Heart size is enlarged. No pneumothorax. No effusion. Cardiac silhouette and mediastinal co ntours are within normal limits. No acute osseous abnormality. Moderate degenerative disease both acromioclavicular joints. Impression: No acute intrathoracic abnormality. Chronic findings.
[2020-04-03 11:46] LABS: ALT (SGPT) 41 U/L (8-55); AST (SGOT) 26 U/L (5-34); Albumin 4.2 g/dL (3.4-4.8); Alkaline Phosphatase 138 U/L (40-110); Anion Gap 16 mmol/L (10-20); BUN (Urea Nitrogen) 14 mg/dL (9.8-20.1); Bilirubin, Total 2.1 mg/dL (0.2-1.2); Calc. Creatinine Clearance 0 mL/min (70-130); Calcium 9.6 mg/dL (7.8-10.44); Carbon Dioxide 25 mmol/L (23-31); Chloride 104 mmol/L (98-107); Globulin 2.9 g/dL (2.4-3.5); Glucose 92 mg/dL (83-110); Potassium 3.7 mmol/L (3.5-5.1); Protein, Total 7.1 g/dL (6.0-8.3); Sodium 141 mmol/L (136-145)
[2020-04-03] MEDS ORDERED: Diazepam 10 MG/2 ML SYRINGE ONE (11:47)
[2020-04-03] MEDS ORDERED: Iopamidol-370 76% 500 ML 1 ML ONE (11:53)
--- NOTE | 2020-04-03 13:31 | CT ---
Exam: CT angiogram of the chest HISTORY: Dyspnea. Pain. COMPARISON: 01/22/2015 TECHNIQUE: CT angiogram of the chest is performed in the axial plane. Three-dimensional reformatted i mages are submitted for interpretation FINDINGS: Mediastinum: No mass, lymphadenopathy or hematoma. HEART: Normal size. No significant pericardial fluid. Aorta: No aneurysm or dissection Upper solid abdominal viscera: No abnormality enhancement. Exophytic hypodensity emanating from the l eft renal cortex measures approximately 1 cm. Incomplete characterization. Trachea and central bronchi: Patent Pleural spaces: No effusion Lung parenchyma: No masses or consolidation. Pneumothorax: None Osseous structures: Stable changes involving the T11 vertebral body with lucency and sclerosis. Pulmonary arteries: Adequate contrast opacification pulmonary arterial system to the level of segment al arteries. No filling defect to suggest pulmonary embolism IMPRESSION: 1. No evidence of pulmonary arterial embolism to the level of the segmental arteries. 2. Incompletely characterized 1 cm left renal cortical lesion
== END 2020-04-03 14:14 | disposition home or self-care (01) ==
LOC: ERS 10:14
DX: M54.6 Pain in thoracic spine (principal); R05 Cough; I48.91 Unspecified atrial fibrillation; E78.5 Hyperlipidemia, unspecified; I10 Essential (primary) hypertension; Z79.899 Other long term (current) drug therapy
CPT/HCPCS: 36415; 71045; 71275; 80053; 83605; 84484; 85025; 87040; 93005; 96374; 96375; J1885; J3360; Q9967

== ENCOUNTER 2020-06-18 10:32 | Emergency (ER) | payer MEDICARE ==
[2020-06-18] MEDS ORDERED: Morphine 4 MG/ML VIAL ONE ×2 (11:22)
[2020-06-18] MEDS ORDERED: Ondansetron ODT 4 MG TAB ONE (11:22)
[2020-06-18] MEDS ORDERED: Acetaminophen 500 MG TAB ONE (11:22)
[2020-06-18] MEDS ORDERED: diphenhydrAMINE 25 MG CAP ONE (11:50)
--- NOTE | 2020-06-18 12:26 | RAD ---
XR Lumbar Spine 2 Or 3 View: 06/18/2020 10:39 AM INDICATION: Fall with back pain COMPARISON: None FINDINGS: Fracture: None. Alignment: Spinal alignment appears within normal limits. Degenerative Change: There is moderate to severe multilevel disc degenerative and facet osteoarthrit ic change. Bone Mineralization:Normal Soft tissues: There are tubal ligation clips within the lower pelvis. IMPRESSION: No acute fracture or subluxation demonstrated. Moderate to severe lumbar spondylosis.
--- NOTE | 2020-06-18 12:28 | RAD ---
XR Thoracic Spine 3 V STANDARD: 06/18/2020 10:58 AM Fall with back pain COMPARISON: None FINDINGS: Fracture: None. Alignment: Spinal alignment appears within normal limits. Degenerative Change: There is moderate multilevel disc degenerative disease. Prevertebral soft tissues: The visualized lungs are clear. IMPRESSION: No acute fracture or subluxation demonstrated. Moderate thoracic spondylosis.
[2020-06-18 13:08] LABS: #Basophils 0.1 thou/uL (0.0-0.2); #Eosinphils 0.1 thou/uL (0.0-0.7); #Lymphocytes 1.8 thou/uL (1.20-3.40); #Monocytes 1.1 thou/uL (0.11-0.59); #Neutrophils 8.7 thou/uL (1.40-6.50); %Basophils 0.6 % (0.0-1.0); %Eosinophils 0.8 % (0.0-10.0); %Lymphocytes 15.1 % (21.0-51.0); %Monocytes 9.3 % (0.0-10.0); %Neutrophils 74.2 % (42.0-75.0); Mean Corpuscular HGB CONC 34.4 g/dL (32.0-36.0); Mean Corpuscular Hemoglobin 30.3 pg (27.0-31.0); Mean Corpuscular Volume 88.1 fL (78.0-98.0); Mean Platelet Volume 7.6 fL (7.4-10.4); Platelet Count 248 thou/uL (130-400); RBC Distribution Width 13.2 % (11.5-14.5); Red Blood Cell (RBC) Count 4.61 mill/uL (4.20-5.40); White Blood Cell (WBC) Count 11.7 thou/uL (4.8-10.8)
[2020-06-18] MEDS ORDERED: Iopamidol-370 76% 500 ML 1 ML ONE (13:17)
[2020-06-18 13:32] LABS: ALT (SGPT) 34 U/L (8-55); AST (SGOT) 29 U/L (5-34); Albumin 3.9 g/dL (3.4-4.8); Alkaline Phosphatase 126 U/L (40-110); Anion Gap 15 mmol/L (10-20); BUN (Urea Nitrogen) 17 mg/dL (9.8-20.1); Bilirubin, Total 1.6 mg/dL (0.2-1.2); Calc. Creatinine Clearance 0 mL/min (70-130); Calcium 9.7 mg/dL (7.8-10.44); Carbon Dioxide 25 mmol/L (23-31); Chloride 104 mmol/L (98-107); Glucose 88 mg/dL (83-110); Potassium 3.7 mmol/L (3.5-5.1); Protein, Total 6.9 g/dL (5.8-8.1); Sodium 140 mmol/L (136-145)
--- NOTE | 2020-06-18 14:21 | CT ---
EXAM: 1. CT of the chest with contrast 2. CT of the abdomen and pelvis with contrast 3. CT of the thoracic and lumbosacral spine with contrast HISTORY: Fall in the bathroom while standing with chest pain, abdominal pain, and back pain. History of CML in remission COMPARISON: CT chest 11/12/2017 TECHNIQUE: 1. Multiple contiguous axial images were obtained in a CT the chest with contrast. Coronal reformats were performed. 2. Multiple contiguous axial images were obtained in a CT of the abdomen and pelvis with contrast. Co darrian reformats were performed. 3. CTs of the thoracic and lumbosacral spines were performed with contrast. Sagittal and coronal re-r eformats were created based off images obtained in the chest, abdomen, and pelvic CTs. FINDINGS: CT CHEST: Mediastinum: Heart is normal in size without focal cardiac abnormality. No hilar or mediastinal lymph adenopathy. No mediastinal hemorrhage. Lungs: There is a small calcified granuloma in the left lung base. No focal infiltrates or suspicious nodules. Pleural space: No pneumothorax or pleural effusion. Thoracic bones: No evidence of acute fracture. Thoracic chest wall: Unremarkable. CT ABDOMEN/PELVIS: Peritoneum: No free air or free fluid, or stranding changes. Liver: Unremarkable. Gallbladder: Absent Adrenal glands: Unremarkable. Kidneys: 3.5 cm right renal cyst. Spleen: Unremarkable. Pancreas: Unremarkable. Bowel: Scattered diverticula in the colon. Retroperitoneum: No lymphadenopathy. Atherosclerotic calcifications in the aorta. Pelvis: No focal mass or abnormality. The reproductive organs are unremarkable. Patient has bilateral tubal ligation clips. Pelvic bones: No acute fracture identified. Remodeling of the right iliac bone may be from prior bone marrow biopsy/harvest. CT OF THE THORACIC AND LUMBOSACRAL SPINE: No acute fracture or subluxation is seen. There is a mottled appearance of some of the vertebral bodi es. This is greatest at T12 and appears chronic. No loss of height of the vertebral bodies is seen. No prevertebral soft tissue swelling are present. Posterior disc osteophyte complexes are seen at L2/ 3 and L3/4 causing severe central canal stenosis. IMPRESSION: 1. No evidence of acute intrathoracic abnormality 2. No evidence of acute intra-abdominal or pelvic abnormality 3. No evidence of acute osseous abnormality of the thoracic or lumbosacral spine. 4. Right renal cyst 5. Degenerative changes of the spine with degenerative changes in the lumbar spine causing severe [place] tral canal stenosis.
== END 2020-06-18 13:30 | disposition home or self-care (01) ==
LOC: ERS 10:32
DX: M51.34 Other intervertebral disc degeneration, thoracic region (principal); M51.36 Other intervertebral disc degeneration, lumbar region; M48.061 Spinal stenosis, lumbar region without neurogenic claudication; M48.04 Spinal stenosis, thoracic region; I10 Essential (primary) hypertension; E78.5 Hyperlipidemia, unspecified; I48.91 Unspecified atrial fibrillation; G47.30 Sleep apnea, unspecified; Z79.01 Long term (current) use of anticoagulants; Z79.899 Other long term (current) drug therapy; W19.XXXA Unspecified fall, initial encounter
CPT/HCPCS: 36415; 71260; 72072; 72100; 74177; 80053; 85025; 96372; J2270; Q0162; Q0163; Q9967

== ENCOUNTER 2020-10-24 17:54 | Emergency (ER) | payer MEDICARE ==
[2020-10-24 18:48] LABS: Hemoglobin 13.7 g/dL (12.0-16.0); Mean Corpuscular HGB CONC 33.8 g/dL (32.0-36.0); Mean Corpuscular Hemoglobin 30.5 pg (27.0-31.0); Mean Corpuscular Volume 90.4 fL (78.0-98.0); Mean Platelet Volume 8.4 fL (7.4-10.4); Platelet Count 215 thou/uL (130-400); Red Blood Cell (RBC) Count 4.49 mill/uL (4.20-5.40); White Blood Cell (WBC) Count 9.3 thou/uL (4.8-10.8)
[2020-10-24 19:04] LABS: Band 1 % (5-11); Eosinophils 1 % (0-10); Lymphocytes 13 % (21-51); MDiff Complete? YES; Monocytes 11 % (0-10); Neutrophil 72 % (42-75); Platelet Morphology Comment Appears Adequate; RBC Morphology Normal
[2020-10-24] MEDS ORDERED: Ondansetron PF 4 MG/2 ML Vial ONE ×2 (19:06→22:34)
[2020-10-24] MEDS ORDERED: Morphine 4 MG/ML VIAL ONE ×2 (19:06→21:33)
[2020-10-24 19:10] LABS: ALT (SGPT) 32 U/L (8-55); AST (SGOT) 36 U/L (5-34); Alkaline Phosphatase 133 U/L (40-110); Anion Gap 17 mmol/L (10-20); BUN (Urea Nitrogen) 10 mg/dL (9.8-20.1); Bilirubin, Total 1.4 mg/dL (0.2-1.2); Calc. Creatinine Clearance 0 mL/min (70-130); Carbon Dioxide 23 mmol/L (23-31); Chloride 101 mmol/L (98-107); Globulin 3.5 g/dL (2.4-3.5); Glucose 110 mg/dL (83-110); Lipase 17 U/L (8-78); Potassium 4.3 mmol/L (3.5-5.1); Protein, Total 7.5 g/dL (5.8-8.1); Sodium 137 mmol/L (136-145)
[2020-10-24] MEDS ORDERED: Acetaminophen 500 MG TAB ONE (19:41)
[2020-10-24] MEDS ORDERED: Albuterol 200 PUFF (6.7GM INHALER) ONE (20:24)
[2020-10-24 20:25] LABS: SARS-CoV-2 NAA Rapid Test Not Detected (NotDetected)
[2020-10-24] MEDS ORDERED: Ketorolac Tromethamine 30 MG/ML VIAL ONE (21:27)
== END 2020-10-24 22:57 | disposition home or self-care (01) ==
LOC: ERS 17:54
DX: J06.9 Acute upper respiratory infection, unspecified (principal); M54.12 Radiculopathy, cervical region; M62.838 Other muscle spasm; Z20.822 Contact with and (suspected) exposure to COVID-19; E78.5 Hyperlipidemia, unspecified; I10 Essential (primary) hypertension; I48.91 Unspecified atrial fibrillation; Z79.899 Other long term (current) drug therapy
CPT/HCPCS: 0240U; 71045; 80053; 83605; 83690; 84484; 85025; 87040; 93005; 94760; 36415; 96374; 96375; 96376; J1885; J2270; J2405

== ENCOUNTER 2020-11-19 09:52 | Inpatient (IN) | payer MEDICARE ==
[2020-11-19 10:55] LABS: #Basophils 0.1 thou/uL (0.0-0.2); #Eosinphils 0.1 thou/uL (0.0-0.7); #Lymphocytes 1.5 thou/uL (1.20-3.40); #Monocytes 0.6 thou/uL (0.11-0.59); #Neutrophils 4.5 thou/uL (1.40-6.50); %Eosinophils 1.7 % (0.0-10.0); %Lymphocytes 22.1 % (21.0-51.0); %Monocytes 8.8 % (0.0-10.0); %Neutrophils 66.4 % (42.0-75.0); Hemoglobin 13.2 g/dL (12.0-16.0); Mean Corpuscular HGB CONC 32.9 g/dL (32.0-36.0); Mean Corpuscular Hemoglobin 29.9 pg (27.0-31.0); Mean Corpuscular Volume 90.8 fL (78.0-98.0); Mean Platelet Volume 7.9 fL (7.4-10.4); Platelet Count 243 thou/uL (130-400); RBC Distribution Width 13.4 % (11.5-14.5); Red Blood Cell (RBC) Count 4.41 mill/uL (4.20-5.40); White Blood Cell (WBC) Count 6.7 thou/uL (4.8-10.8)
[2020-11-19 11:16] LABS: ALT (SGPT) 28 U/L (8-55); AST (SGOT) 24 U/L (5-34); Albumin 3.8 g/dL (3.4-4.8); Alkaline Phosphatase 109 U/L (40-110); Anion Gap 14 mmol/L (10-20); BUN (Urea Nitrogen) 11 mg/dL (9.8-20.1); Bilirubin, Total 2.2 mg/dL (0.2-1.2); Calc. Creatinine Clearance 0 mL/min (70-130); Calcium 9.5 mg/dL (7.8-10.44); Carbon Dioxide 27 mmol/L (23-31); Chloride 104 mmol/L (98-107); Globulin 2.6 g/dL (2.4-3.5); Glucose 138 mg/dL (83-110); Potassium 3.6 mmol/L (3.5-5.1); Protein, Total 6.4 g/dL (5.8-8.1); Sodium 141 mmol/L (136-145)
[2020-11-19] MEDS ORDERED: Aspirin Chewable 81 MG TAB ONE (13:42)
[2020-11-19] MEDS ORDERED: Nitroglycerin 2% Ointment 1 INCH/1 GM Packet ONE (13:42)
[2020-11-19] MEDS ORDERED: Nitroglycerin 0.4 MG TAB (25 Tab Bottle) SL PRN (14:56)
[2020-11-19] MEDS ORDERED: Lidocaine 5% Patch TD SCH (15:00)
[2020-11-19] MEDS ORDERED: Cyclobenzaprine 10 MG TAB ONE (15:51)
[2020-11-19] MEDS: Cyclobenzaprine 10 MG TAB PO PRN (16:00)
[2020-11-19 19:58] LABS: SARS-CoV-2 NAA Rapid Test Not Detected (NotDetected)
[2020-11-19] MEDS ORDERED: Gabapentin 300 MG CAP PO SCH (21:00)
[2020-11-19] MEDS: Apixaban 5 MG TAB PO SCH (22:36)
[2020-11-19] MEDS: Gabapentin 300 MG CAP PO SCH ×2 (22:36→22:39)
[2020-11-19] MEDS: Lidocaine 5% Patch TD SCH (22:38)
[2020-11-19] MEDS: Ramipril 5 MG CAP PO SCH (22:38)
[2020-11-20 00:05] VITALS: BMI 36.3
[2020-11-20] MEDS: Transdermal Patch Removal TOP SCH (03:42)
[2020-11-20] MEDS: Cyclobenzaprine 10 MG TAB PO PRN ×2 (06:34→12:43)
[2020-11-20] MEDS: Nilotinib Hcl [Tasigna] 150 MG Capsule PO SCH ×2 (07:10→19:00)
[2020-11-20] MEDS: Apixaban 5 MG TAB PO SCH ×2 (08:11→21:16)
[2020-11-20] MEDS: Gabapentin 300 MG CAP PO SCH ×3 (08:12→21:16)
[2020-11-20] MEDS: Aspirin 81 mg Enteric Coated Tablet PO SCH (08:12)
[2020-11-20] MEDS ORDERED: methylPREDNISolone Sod Succ/PF 125 MG/2 ML VIAL IVP SCH (12:00)
[2020-11-20] MEDS: Lidocaine 5% Patch TD SCH (12:44)
[2020-11-20] MEDS ORDERED: Regadenoson 0.4 MG/5 ML SYRINGE ONE (15:15)
[2020-11-20] MEDS ORDERED: Atorvastatin Calcium 40 MG TAB PO SCH (21:00)
[2020-11-20] MEDS: Ramipril 5 MG CAP PO SCH (21:15)
[2020-11-21] MEDS: Gabapentin 300 MG CAP PO SCH ×2 (00:56→08:06)
[2020-11-21] MEDS: Transdermal Patch Removal TOP SCH (04:48)
[2020-11-21] MEDS: Aspirin 81 mg Enteric Coated Tablet PO SCH (08:06)
[2020-11-21] MEDS: Apixaban 5 MG TAB PO SCH (08:06)
[2020-11-21] MEDS: Nilotinib Hcl [Tasigna] 150 MG Capsule PO SCH (08:10)
[2020-11-21] MEDS: Cyclobenzaprine 10 MG TAB PO PRN (08:16)
[2020-11-21 08:43] VITALS: BP 135/68; TEMP 98.6
== END 2020-11-21 11:36 | disposition home or self-care (01) | DRG 552 ==
LOC: ERS 09:52 → ERHOLD 13:55 → 2SW 19:39 → OBSVTOIN 11-20 11:53
PROVIDERS: ADMIT Internal Medicine; ATTEND Internal Medicine
DX: M48.02 Spinal stenosis, cervical region (principal); C92.10 Chronic myeloid leukemia, BCR/ABL-positive, not having achieved remission; M47.12 Other spondylosis with myelopathy, cervical region; Z20.822 Contact with and (suspected) exposure to COVID-19; M54.12 Radiculopathy, cervical region; I48.0 Paroxysmal atrial fibrillation; M48.061 Spinal stenosis, lumbar region without neurogenic claudication; I25.10 Atherosclerotic heart disease of native coronary artery without angina pectoris; E78.5 Hyperlipidemia, unspecified; M54.30 Sciatica, unspecified side; G47.33 Obstructive sleep apnea (adult) (pediatric); Z88.1 Allergy status to other antibiotic agents; Z88.5 Allergy status to narcotic agent; Z79.899 Other long term (current) drug therapy; Z79.01 Long term (current) use of anticoagulants; Z90.49 Acquired absence of other specified parts of digestive tract; Z98.890 Other specified postprocedural states
CPT/HCPCS: 0240U; 36415; 71045; 72141; 72148; 78452; 80053; 84484; 85025; 93005; 93017; 94760; A9500; G0378; J2785

== ENCOUNTER 2021-01-21 11:29 | Outpatient (CLI) | payer MEDICARE ==
[2021-01-21 13:55] LABS: PTT 27.6 sec (22.0-33.0); Prothrombin Time 11.3 sec (9.5-12.1)
[2021-01-21 13:59] LABS: Anion Gap 16 mmol/L (10-20); BUN (Urea Nitrogen) 12 mg/dL (9.8-20.1); Calc. Creatinine Clearance 0 mL/min (70-130); Carbon Dioxide 25 mmol/L (23-31); Chloride 103 mmol/L (98-107); Glucose 108 mg/dL (83-110); Potassium 3.7 mmol/L (3.5-5.1); Sodium 140 mmol/L (136-145)
[2021-01-21 14:05] LABS: Hemoglobin 13.3 g/dL (12.0-15.5); Mean Corpuscular HGB CONC 32.9 g/dL (32.0-36.0); Mean Corpuscular Hemoglobin 28.9 pg (27.0-33.0); Mean Corpuscular Volume 87.8 fl (81.6-98.3); Mean Platelet Volume 10.7 fl (7.4-10.4); Platelet Count 229 10x3/uL (150-450); RBC Distribution Width 13.5 % (11.5-14.5); White Blood Cell (WBC) Count 7.5 10x3/uL (3.5-10.5)
[2021-01-22 08:31] LABS: SARS-CoV-2 PCR by NAA Not Detected (NotDetected)
== END 2021-01-21 11:30 | disposition home or self-care (01) ==
LOC: LABBT 11:29
PROVIDERS: ATTEND Neurological Surgery
DX: Z01.812 Encounter for preprocedural laboratory examination (principal); Z20.822 Contact with and (suspected) exposure to COVID-19
CPT/HCPCS: 80048; 85027; 85610; 85730; U0003; U0005

== ENCOUNTER 2021-01-26 05:29 | Inpatient (IN) | payer MEDICARE ==
[2021-01-25 13:00] VITALS: BMI 34.7
[2021-01-26] MEDS ORDERED: Ampicillin 2 GM VIAL ONE (06:00)
[2021-01-26] MEDS ORDERED: hydrALAZINE 20 MG/ML VIAL ONE (06:00)
[2021-01-26] MEDS ORDERED: Neomycin-Polymyxin 1 ML AMP ONE (06:10)
[2021-01-26] MEDS ORDERED: Thrombin 5000 UNITS/5 ML VIAL ONE (06:10)
[2021-01-26] MEDS ORDERED: HYDROmorphone 2 MG/ML VIAL ONE (06:35)
[2021-01-26] MEDS ORDERED: Phenylephrine 10 MG/ML VIAL ONE (06:35)
[2021-01-26] MEDS ORDERED: Fentanyl 100 MCG/2 ML VIAL ONE (06:35)
[2021-01-26] MEDS ORDERED: PROPOFOL 200 MG/20 ML VIAL ONE (07:04)
[2021-01-26] MEDS ORDERED: Lidocaine 1% PF 5 ML VIAL ONE (07:04)
[2021-01-26] MEDS ORDERED: Dexamethasone 20 MG/5 ML VIAL ONE (07:04)
[2021-01-26] MEDS ORDERED: Rocuronium Bromide 10 MG/ML (10ML VIAL) ONE (07:04)
[2021-01-26] MEDS ORDERED: Metoclopramide HCl 10 MG/2 ML VIAL ONE (07:04)
[2021-01-26] MEDS ORDERED: PHENYLEPHRINE-NS 100 MCG/ML 10 ML SYRINGE ONE (07:04)
[2021-01-26] MEDS ORDERED: Ketorolac Tromethamine 30 MG/ML VIAL ONE (07:04)
[2021-01-26] MEDS ORDERED: Glycopyrrolate 0.2 MG/ML 5 ML SYRINGE ONE (07:04)
[2021-01-26] MEDS ORDERED: Ondansetron PF 4 MG/2 ML Vial ONE (07:04)
[2021-01-26] MEDS ORDERED: Ondansetron PF 4 MG/2 ML Vial IVP PRN (07:11)
[2021-01-26] MEDS ORDERED: Bisacodyl 10 MG SUPP PR PRN (07:11)
[2021-01-26] MEDS ORDERED: Acetaminophen 325 MG TAB PO PRN (07:11)
[2021-01-26] MEDS ORDERED: HYDROcodone/Acetaminophen 7.5/325 mg Tablet PO PRN (07:11)
[2021-01-26] MEDS ORDERED: Milk Of Magnesia 30 ML UDCUP PO PRN (07:11)
[2021-01-26] MEDS ORDERED: diphenhydrAMINE 50 MG/ML VIAL IVP PRN (07:11)
[2021-01-26] MEDS ORDERED: Albumin 5% 500 ML ONE (07:39)
[2021-01-26] MEDS ORDERED: SUGAMMADEX SODIUM 200 MG/2 ML VIAL ONE (12:48)
[2021-01-26] MEDS ORDERED: ceFAZolin Sodium/D5W 2 GM in Premix Bag 1 BAG IVPB SCH (14:00)
[2021-01-26] MEDS ORDERED: Promethazine HCl 25 MG/ML VIAL IM PRN (14:21)
[2021-01-26] MEDS ORDERED: Ondansetron HCl/PF 4 MG/2 ML Vial IVP PRN (14:21)
[2021-01-26] MEDS ORDERED: Promethazine HCl 25 MG/ML VIAL IVPB PRN (14:21)
[2021-01-26 16:30] LABS: Base Excess (BEa) -3.9 mEq/L (-2.0 to +3.0); CO2 Tension 42.7 mmHg (35.0-45.0); Calcium, Ionized (arterial) 1.16 mmol/L (1.12-1.30); Carboxyhemoglobin (COHb) 0.4 gm% (0.0-3.0); Hemoglobin (Hb) 13.8 g/dL (12.0-16.0); O2 Tension (PaO2), arterial 195.8 mmHg (> 70.0); Potassium - ABG Lab 4.33 mmol/L (3.70-5.30); pH, Arterial 7.33 (7.35-7.45)
[2021-01-26 16:31] LABS: Puncture Site RRA
[2021-01-26 16:32] LABS: ALV-art Gradient 463.825 mmHg (0-20)
[2021-01-26] MEDS: Sodium Chloride 0.9% 1,000 ML IV SCH ×2 (18:28→21:45)
[2021-01-26] MEDS: Atenolol 50 MG TAB PO SCH (18:29)
[2021-01-26] MEDS: Chlorthalidone 25 MG TAB PO SCH (18:31)
[2021-01-26] MEDS: Gabapentin 300 MG CAP PO SCH ×3 (18:32→21:46)
[2021-01-26] MEDS: Potassium Chloride 20 MEQ TAB PO SCH (19:39)
[2021-01-26] MEDS: Atorvastatin Calcium 40 MG TAB PO SCH ×2 (21:22→21:45)
[2021-01-26] MEDS: Morphine 4 MG/ML VIAL SLOW IVP PRN ×2 (21:35→23:53)
[2021-01-26] MEDS: CEFAZOLIN 2 GM in Sodium Chloride 0.9% 100 ML IVPB SCH (21:45)
[2021-01-26] MEDS ORDERED: Senokot S 8.6-50 MG TAB PO PRN (22:12)
[2021-01-27] MEDS: tiZANidine HCl 4 MG TAB PO PRN (04:10)
[2021-01-27] MEDS: CEFAZOLIN 2 GM in Sodium Chloride 0.9% 100 ML IVPB SCH (05:36)
[2021-01-27 06:11] LABS: #Lymphocytes 1.2 thou/uL (1.20-3.40); #Monocytes 1.4 thou/uL (0.11-0.59); %Basophils 0.2 % (0.0-1.0); %Lymphocytes 8.8 % (21.0-51.0); %Monocytes 10.5 % (0.0-10.0); %Neutrophils 80.5 % (42.0-75.0); Hemoglobin 12.6 g/dL (12.0-16.0); Mean Corpuscular HGB CONC 32.5 g/dL (32.0-36.0); Mean Corpuscular Hemoglobin 29.4 pg (27.0-31.0); Mean Corpuscular Volume 90.6 fL (78.0-98.0); Mean Platelet Volume 8.1 fL (7.4-10.4); Platelet Count 202 thou/uL (130-400); RBC Distribution Width 13.1 % (11.5-14.5); Red Blood Cell (RBC) Count 4.29 mill/uL (4.20-5.40); White Blood Cell (WBC) Count 13.7 thou/uL (4.8-10.8)
[2021-01-27 06:32] LABS: ALT (SGPT) 63 U/L (8-55); AST (SGOT) 62 U/L (5-34); Alkaline Phosphatase 98 U/L (40-110); Anion Gap 14 mmol/L (10-20); BUN (Urea Nitrogen) 22 mg/dL (9.8-20.1); Bilirubin, Total 1.3 mg/dL (0.2-1.2); Calc. Creatinine Clearance 61 mL/min (70-130); Calcium 8.9 mg/dL (7.8-10.44); Carbon Dioxide 24 mmol/L (23-31); Chloride 107 mmol/L (98-107); Globulin 2.3 g/dL (2.4-3.5); Glucose 127 mg/dL (83-110); Potassium 4.2 mmol/L (3.5-5.1); Protein, Total 6.3 g/dL (5.8-8.1); Sodium 141 mmol/L (136-145)
[2021-01-27] MEDS: Gabapentin 300 MG CAP PO SCH ×3 (09:28→20:19)
[2021-01-27] MEDS: Atenolol 50 MG TAB PO SCH (09:28)
[2021-01-27] MEDS: Multivit, Therapeutic 1 TAB PO SCH (09:29)
[2021-01-27] MEDS: Chlorthalidone 25 MG TAB PO SCH (09:33)
[2021-01-27] MEDS: traMADol HCl 50 MG TAB PO PRN (17:14)
[2021-01-27] MEDS: Potassium Chloride 20 MEQ TAB PO SCH (17:15)
[2021-01-27] MEDS: Sodium Chloride 0.9% 1,000 ML IV SCH (18:48)
[2021-01-27] MEDS: Ramipril 5 MG CAP PO SCH (20:17)
[2021-01-27] MEDS: Atorvastatin Calcium 40 MG TAB PO SCH (20:17)
[2021-01-28] MEDS: Sodium Chloride 0.9% 1,000 ML IV SCH ×2 (00:43→12:24)
[2021-01-28] MEDS: tiZANidine HCl 4 MG TAB PO PRN (01:32)
[2021-01-28] MEDS: Morphine 4 MG/ML VIAL SLOW IVP PRN (03:05)
[2021-01-28] MEDS: NILOTINIB HCL 150 MG PO SCH ×2 (06:04→18:10)
[2021-01-28 08:18] LABS: Troponin I 0.013 ng/mL (< 0.028)
[2021-01-28 08:25] LABS: Anion Gap 12 mmol/L (10-20); BUN (Urea Nitrogen) 19 mg/dL (9.8-20.1); Calc. Creatinine Clearance 92 mL/min (70-130); Calcium 9.2 mg/dL (7.8-10.44); Carbon Dioxide 28 mmol/L (23-31); Chloride 101 mmol/L (98-107); Glucose 118 mg/dL (83-110); Potassium 3.6 mmol/L (3.5-5.1); Sodium 137 mmol/L (136-145)
[2021-01-28] MEDS: Gabapentin 300 MG CAP PO SCH ×3 (09:10→22:28)
[2021-01-28] MEDS: Multivit, Therapeutic 1 TAB PO SCH (09:30)
[2021-01-28] MEDS: HYDROcodone/Acetaminophen 10/325 mg Tablet PO PRN (09:30)
[2021-01-28] MEDS: Atenolol 50 MG TAB PO SCH (09:30)
[2021-01-28] MEDS: Chlorthalidone 25 MG TAB PO SCH (10:45)
[2021-01-28] MEDS: traMADol HCl 50 MG TAB PO PRN (15:02)
[2021-01-28] MEDS ORDERED: Dexamethasone 4 mg/ml Vial SLOW IVP SCH (16:15)
[2021-01-28] MEDS ORDERED: Furosemide 40 MG/4 ML VIAL SLOW IVP SCH (18:00)
[2021-01-28] MEDS: Potassium Chloride 20 MEQ TAB PO SCH (18:10)
[2021-01-28] MEDS: Ramipril 5 MG CAP PO SCH (22:27)
[2021-01-28] MEDS: Atorvastatin Calcium 40 MG TAB PO SCH (22:30)
[2021-01-29] MEDS: HYDROcodone/Acetaminophen 10/325 mg Tablet PO PRN (03:17)
[2021-01-29] MEDS: NILOTINIB HCL 150 MG PO SCH (06:22)
[2021-01-29 06:50] LABS: Anion Gap 16 mmol/L (10-20); BUN (Urea Nitrogen) 35 mg/dL (9.8-20.1); Calc. Creatinine Clearance 57 mL/min (70-130); Calcium 8.9 mg/dL (7.8-10.44); Carbon Dioxide 27 mmol/L (23-31); Chloride 98 mmol/L (98-107); Glucose 158 mg/dL (83-110); Sodium 137 mmol/L (136-145)
[2021-01-29] MEDS: Gabapentin 300 MG CAP PO SCH (09:53)
[2021-01-29] MEDS: Multivit, Therapeutic 1 TAB PO SCH (09:57)
[2021-01-29] MEDS: Atenolol 50 MG TAB PO SCH (12:04)
[2021-01-29] MEDS: Chlorthalidone 25 MG TAB PO SCH (12:05)
[2021-01-29 12:33] VITALS: BP 95/62; TEMP 97.7
[2021-01-29] MEDS ORDERED: Dexamethasone 10 MG in Sodium Chloride 0.9% 50 ML IVPB ONE (16:08)
== END 2021-01-29 16:10 | disposition home or self-care (01) | DRG 472 ==
LOC: SDC 05:29 → SURG B 07:17 → OBSVTOIN 01-28 06:09
PROVIDERS: ADMIT Neurological Surgery; ATTEND Neurological Surgery
PROC: 0RG20A0 Fusion of 2 or more Cervical Vertebral Joints with Interbody Fusion Device, Anterior Approach, Anterior Column, Open Approach (ICD-10-PCS; principal; 2021-01-26)
PROC: 0RT30ZZ Resection of Cervical Vertebral Disc, Open Approach (ICD-10-PCS; 2021-01-26)
PROC: 01N10ZZ Release Cervical Nerve, Open Approach (ICD-10-PCS; 2021-01-26)
PROC: 00NW0ZZ Release Cervical Spinal Cord, Open Approach (ICD-10-PCS; 2021-01-26)
DX: M50.123 Cervical disc disorder at C6-C7 level with radiculopathy (principal); M50.01 Cervical disc disorder with myelopathy, high cervical region; I48.20 Chronic atrial fibrillation, unspecified; C92.10 Chronic myeloid leukemia, BCR/ABL-positive, not having achieved remission; M48.02 Spinal stenosis, cervical region; E78.5 Hyperlipidemia, unspecified; I10 Essential (primary) hypertension; Z20.822 Contact with and (suspected) exposure to COVID-19; R00.0 Tachycardia, unspecified; Z90.49 Acquired absence of other specified parts of digestive tract; Z98.890 Other specified postprocedural states; Z79.01 Long term (current) use of anticoagulants; Z88.5 Allergy status to narcotic agent; Z88.1 Allergy status to other antibiotic agents
CPT/HCPCS: 36415; 36600; 71045; 76000; 80048; 80053; 82805; 84484; 85025; 93005; 93010; 93970; 96374; 96375; 96376; C1713; C1768; C1776; G0378; J0290; J0360; J0690; J1100; J1170; J1885; J1940; J2270; J2370; J2405; J2704; J2765; J3010; J3490; P9045

== ENCOUNTER 2021-03-08 15:31 | Outpatient (CLI) | payer MEDICARE | END 2021-03-08 15:32 | disposition home or self-care (01) | LOC: SCSRAD 15:31 | PROVIDERS: ATTEND Neurological Surgery | DX: M50.10 Cervical disc disorder with radiculopathy, unspecified cervical region (principal); Z98.1 Arthrodesis status | CPT/HCPCS: 72040 ==

== ENCOUNTER 2022-01-28 09:03 | Outpatient (CLI) | payer MEDICARE | END 2022-01-28 09:04 | disposition home or self-care (01) | LOC: SCSRAD 09:03 | PROVIDERS: ATTEND Neurological Surgery | DX: M47.26 Other spondylosis with radiculopathy, lumbar region (principal) | CPT/HCPCS: 72120 ==